=== PATIENT | male | born 1940 | race Caucasian/White ===

== ENCOUNTER 2016-09-07 02:07 | Emergency (ER) | payer MEDICARE, BC ==
[2016-09-07] MEDS ORDERED: Lidocaine 2% with EPINEPHrine 1:100,000 20 ML MDV ONE (02:26)
[2016-09-07] MEDS ORDERED: Lidocaine 2% with EPINEPHrine 1:100,000 20 ML MDV INJECT ONE (02:40)
[2016-09-07 02:55] VITALS: BP 154/87
--- NOTE | 2016-09-07 02:59 | EDM.PDOC ---
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 Denies: Transfusion Reaction - Past Surgical History HEENT Surgical History: Reports: Cataract Surgery, Tonsillectomy, Other (See Below) Other HEENT Surgeries/Procedures: cornea reconstruction GI Surgical History: Reports: Colonoscopy Social & Family History - Family History Family Medical History: Noncontributory - Tobacco Use Smoking Status *Q: Former Smoker Used Tobacco, but Quit: Yes Month Tobacco Last Used: 40yrs - Caffeine Use Caffeine Use: Reports: Coffee - Alcohol Use Alcohol Use History: No - Recreational Drug Use Recreational Drug Use: No - Living Situation & Occupation Living situation: Reports: , with Spouse Occupation: Retired ED ROS ENT - Review of Systems Review Of Systems: See Below Constitutional: Reports: No Symptoms HEENT: Reports: Nosebleed Respiratory: Reports: No Symptoms Cardiovascular: Reports: No Symptoms Endocrine: Reports: No Symptoms GI/Abdominal: Reports: No Symptoms : Reports: No Symptoms Musculoskeletal: Reports: No Symptoms Skin: Reports: No Symptoms Neurological: Reports: No Symptoms Psychiatric: Reports: No Symptoms Hematologic/Lymphatic: Reports: No Symptoms Immunologic: Reports: No Symptoms ED EXAM, ENT - Physical Exam Exam: See Below Exam Limited By: No Limitations General Appearance: Alert, WD/WN, No Apparent Distress Eye Exam: Bilateral Eye: EOMI, Normal Fundi, Normal Inspection Ears: Normal External Exam, Normal Canal, Hearing Grossly Normal Nose: Normal Inspection, Normal Mucousa, Active Bleeding (Right Nares unable to ascertain source-). No: Nasal Deformity, Nasal Swelling, Nasal Tenderness Mouth/Throat: Normal Inspection, Normal Gums, Normal Lips (Multiple missing teeth), Normal Oropharynx Head: Atraumatic, Normocephalic Neck: Normal Inspection, Supple, Non-Tender, Full Range of Motion Respiratory/Chest: No Respiratory Distress, Lungs Clear Cardiovascular: Normal Peripheral Pulses, Regular Rate, Rhythm, No Edema, No Gallop, No JVD GI/Abdominal: Non-Tender (Male) Exam: Deferred Rectal (Males) Exam: Deferred Extremities: Normal Inspection, Normal Range of Motion, Non-Tender, No Pedal Edema, Normal Capillary Refill Neurological: Alert, Oriented, CN II-XII Intact, Normal Cognition, Normal Gait, Normal Reflexes, No Motor/Sensory Deficits Psychiatric: Normal Affect, Normal Mood Skin: Warm, Dry, Intact, Normal Color, No Rash Lymphatic: No Adenopathy ED ENT PROCEDURES - Laceration/Wound Repair Right Nare Saline irrigation (cc's): 5 Exploration/Debridement/Repair: other (Packing with 2x2 soaked in 2% lidocaine with epinephrine- waiting 15 minutes with control of bleeding- this packing removed and replaced with packing saturated with water soluable lubricant) Sterile dressing applied: provider Complications: none - Epistaxis Procedure Indication: epistaxis, uncontrolled Recent anticoagulants/antiplatlets: No Uncontrolled HTN: No Recent septal/nasal surgery: No Site of bleeding: right nare, posterior Clearing of clots: patient blew nose Topical Meds: other (2% Lidocaine with epinephrine) Ice pack to area: Yes Anterior Packing: petrolatum guaze strip, nasal tampon Local anesthesia - Lidocaine (Xylocaine): 2% with epi Local anesthetic volume: 1cc Complications: No Course - Vital Signs Last Recorded V/S: Last Vital Signs Temp 37.9 C 09/07/16 02:14 Pulse 105 H 09/07/16 02:14 Resp 20 09/07/16 02:14 BP 165/105 H 09/07/16 02:14 Pulse Ox 95 09/07/16 02:14 - Orders/Labs/Meds Meds: Medications Discontinued Medications Generic Name Dose Route Start Last Admin Trade Name Rip PRN Reason Stop Dose Admin Lidocaine/Epinephrine Confirm 09/07/16 02:26 09/07/16 02:47 Xylocaine 2% With Epinephrine 1:100,000 Administered 09/07/16 02:27 Not Given Dose 20 ml .ROUTE .STK-MED ONE Lidocaine/Epinephrine 20 ml 09/07/16 02:40 09/07/16 02:47 Xylocaine 2% With Epinephrine 1:100,000 INJECT 09/07/16 02:41 20 ml ONETIME ONE Administration Departure - Departure Time of Disposition: 03:08 Disposition: Home, Self-Care 01 Condition: good Clinical Impression: Epistaxis - Discharge Information Forms: ED Department Discharge Additional Instructions: No Aspirin Rest at home Removal of packing in am at 0900. Ice pack Avoid removing or irritating packing at this time. Fluids as tolerated. F/U with Dr. Billy in am as necessary. MLP Sign Off - Signature Requirements MLP Sign Off: No - Problem List & Annotations (1) Epistaxis not due to trauma SNOMED Code(s): 54082362 Code(s): R04.0 - EPISTAXIS Status: Acute Current Visit: Yes - Problem List Review Problem List Initiated/Reviewed/Updated: No - Assessment/Plan Assessment:: Right recurrent epistaxis- Observation Nasal Packing Plan: No Aspirin Rest at home Removal of packing in am at 0900. Ice pack Avoid removing or irritating packing at this time. Fluids as tolerated. F/U with Dr. Billy in am as necessary.
== END 2016-09-07 03:20 | disposition home or self-care (01) ==
LOC: CC.ED 02:10
DX: R04.0 Epistaxis (principal); Z79.82 Long term (current) use of aspirin; Z79.899 Other long term (current) drug therapy; Z87.891 Personal history of nicotine dependence; Z98.49 Cataract extraction status, unspecified eye; Z98.890 Other specified postprocedural states
CPT/HCPCS: 30901; 30903; 99283

== ENCOUNTER 2017-09-07 15:33 | Observation (INO) | payer MEDICARE, BC ==
[~2017-09-07 15:33] MED LIST: Lactated Ringers 0 ML ONE
[2017-09-07] MEDS ORDERED: Lactated Ringers 1,000 ML IV SCH (15:45)
[2017-09-07 16:08] LABS: CHLORIDE,CL 106 mEq/L (98-106); SODIUM,NA 142 mEq/L (136-145)
[2017-09-07] MEDS ORDERED: Acetaminophen 325 MG Tab PO PRN (17:42)
[2017-09-07] MEDS ORDERED: Enoxaparin 30 MG/0.3 ML Syringe SUBCUT SCH (17:42)
[2017-09-07] MEDS: Lactated Ringers 1,000 ML IV SCH (18:09)
--- NOTE | 2017-09-07 22:31 | EDM.PDOC ---
ED HPI GENERAL MEDICAL PROBLEM - General Chief Complaint: General Stated Complaint: sweaty, lightheaded, dizzy Time Seen by Provider: 09/07/17 15:35 Source of Information: Reports: Patient, Family ( and son) History Limitations: Reports: No Limitations - History of Present Illness INITIAL COMMENTS - FREE TEXT/NARRATIVE: Jaleel is a 77 yo who is brought into the ER via [facility] from [facility]. 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 He started to feel weak, dizzy and lightheaded. He ended up having a syncopal episode. He states he does not remember much of event. He was walking to his ranger and when he woke there was a lot of people around him. His son called 911 when he saw him slumped over in ranger. He admits it was really hot out with no wind and hadn't drank much water today. He denies any chest pain prior to the syncopal episode. States he did have some chest discomfort a few days ago but went away on it's own and hasn't had any since. EMS state upon arrival Jaleel was diaphoretic. Upon getting him into the ambulance they gave him 4 baby aspirin en route and 1 sublingual nitro. IV was started with normal saline drip. They state vital signs were stable en route. Upon arrival to the emergency room, Jaleel denies any discomfort. States he isn 't sure if the heat got to him or not. Onset: Today, Sudden Duration: Resolved Prior to Arrival Location: Reports: Generalized Associated Symptoms: Reports: Diaphoresis, Nausea/Vomiting (nausea, no vomiting) , Syncope, Weakness. 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, IV/IO, Nitroglycerin, Oxygen, See EMS Report - Related Data Allergies Allergy/AdvReac Type Severity Reaction Status Date / Time No Known Allergies Allergy Verified 09/07/17 17:07 Home Meds: Home Meds Aspirin [Cristin Chewable Aspirin] 81 mg PO DAILY 09/07/16 [History] Multivits,Ca,Min/Iron/FA/Lycop [Centrum Men's Tablet] 1 tab PO DAILY 09/07/16 [ History] Past Medical History HEENT History: Reports: Cataract, Epistaxis Respiratory History: Reports: None Gastrointestinal History: Reports: PUD Hematologic History: Reports: Blood Transfusion(s) - Past Surgical History HEENT Surgical History: Reports: Cataract Surgery, Tonsillectomy, Other (See Below) Other HEENT Surgeries/Procedures: cornea reconstruction GI Surgical History: Reports: EGD Other Musculoskeletal Surgeries/Procedures:: pt reports history of 18 steroid shots in L knee and was sent to neurologist for this Social & Family History - Family History Family Medical History: Noncontributory - Tobacco Use Smoking Status *Q: Never Smoker Second Hand Smoke Exposure: Yes - Caffeine Use Caffeine Use: Reports: Coffee - Recreational Drug Use Recreational Drug Use: No - Living Situation & Occupation Living situation: Reports: , with Spouse Occupation: Retired ED ROS GENERAL - Review of Systems Review Of Systems: See Below Constitutional: Reports: Weakness, Diaphoresis. Denies: Fever, Chills HEENT: Reports: No Symptoms Respiratory: Reports: No Symptoms Cardiovascular: Reports: Lightheadedness, Syncope. Denies: Chest Pain, Blood Pressure Problem, Palpitations GI/Abdominal: Reports: Nausea. Denies: Abdominal Pain, Bloody Stool, Constipation, Diarrhea, Hematochezia, Melena, Vomiting : Reports: No Symptoms Musculoskeletal: Reports: No Symptoms Skin: Reports: Diaphoresis Neurological: Reports: Syncope. Denies: Confusion, Headache, Numbness, Pre- Existing Deficit, Tingling, Trouble Speaking, Change in Speech Psychiatric: Reports: No Symptoms ED EXAM, GENERAL - Physical Exam Exam: See Below Exam Limited By: No Limitations General Appearance: Alert, No Apparent Distress Eye Exam: Bilateral Eye: EOMI, PERRL Ears: Normal External Exam, Normal Canal, Hearing Grossly Normal, Normal TMs Nose: Normal Inspection, Normal Mucosa, No Blood Throat/Mouth: Normal Inspection, Normal Lips, Normal Gums, Normal Oropharynx, Normal Voice, No Airway Compromise Head: Atraumatic, Normocephalic Neck: Normal Inspection, Supple Respiratory/Chest: No Respiratory Distress, Lungs Clear, Normal Breath Sounds, No Accessory Muscle Use Cardiovascular: Regular Rate, Rhythm, No Edema, Systolic Murmur GI/Abdominal: Normal Bowel Sounds, Soft, No Organomegaly, No Distention, No Abnormal Bruit, No Mass Extremities: Normal Inspection, No Pedal Edema Neurological: Alert, Oriented, CN II-XII Intact, Normal Cognition, No Motor/ Sensory Deficits Psychiatric: Normal Affect, Normal Mood Skin Exam: Warm, Normal Color, Diaphoretic EKG INTERPRETATION EKG Date: 09/07/17 Rhythm: NSR Comparison: NA - No Prior EKG Course - Vital Signs Last Recorded V/S: Last Vital Signs Temp 97.2 F 09/07/17 19:55 Pulse 86 09/07/17 19:55 Resp 18 09/07/17 19:55 BP 141/76 H 09/07/17 19:55 Pulse Ox 98 09/07/17 19:55 - Orders/Labs/Meds Orders: Active Orders 24 hr Category Date Time Status Chest 2V [CR] Stat Exams 09/07/17 15:27 Taken Medication Orders Acetaminophen (Tylenol) 650 mg PO Q4H PRN PRN Reason: Pain (Mild 1-3)/fever Aspirin (Aspirin) 81 mg PO DAILY [facility] Enoxaparin Sodium (Lovenox) 30 mg SUBCUT Q24H [facility] Last Admin: 09/07/17 18:08 Dose: 30 mg Lactated Ringer's (Ringers, Lactated) 1,000 mls @ 100 mls/hr IV ASDIRECTED [facility] Last Admin: 09/07/17 18:09 Dose: 100 mls/hr Labs: Laboratory Tests 09/07/17 09/07/17 09/07/17 Range/Units 15:45 15:45 15:45 WBC 11.5 H (5.0-10.0) 10^3/uL RBC 4.61 (4.50-6.00) 10^6/uL Hgb 13.5 L (14.0-18.0) g/dL Hct 41.8 (40.0-54.0) % MCV 90.7 (82.0-94.0) fL MCH 29.3 (27.0-32.0) pg MCHC 32.3 L (33.0-38.0) g/dL RDW Coeff of Lupe 13.1 (11.0-15.0) % Plt Count 192 (150-400) 10^3/uL Neut % (Auto) 75.7 (35-85) % Lymph % (Auto) 14.9 (10-55) % [place] % (Auto) 7.4 (0-16) % Eos % (Auto) 1.7 (0-5) % Baso % (Auto) 0.3 (0-3) % Neut # (Auto) 8.71 H (1.80-7.00) 10^3/uL Lymph # (Auto) 1.72 (1.00-4.80) 10^3/uL Linn # (Auto) 0.85 H (0.00-0.80) 10^3/uL Eos # (Auto) 0.20 (0.00-0.45) 10^3/uL Baso # (Auto) 0.03 10^3/uL PT 10.6 (9.7-12.3) SEC INR 1.02 (0.92-1.18) Sodium 142 (136-145) mEq/L Potassium 3.8 (3.5-5.0) mEq/L Chloride 106 (98-106) mEq/L Carbon Dioxide 26 (21-32) mmol/L BUN 28 H (7-18) mg/dL Creatinine 1.7 H (0.7-1.3) mg/dL Est Cr Clr Drug Dosing 35.21 mL/min Estimated GFR (MDRD) 39 L (>=60) mL/min Glucose 167 H (75-99) mg/dL Calcium 9.2 (8.4-10.1) mg/dL Lactate Dehydrogenase 219 H (100-190) U/L Creatine Kinase 241 H (35-232) U/L Troponin I < 0.017 (0.00-0.06) ng/mL Meds: Medications Generic Name Dose Route Start Last Admin Trade Name Freq PRN Reason Stop Dose Admin Acetaminophen 650 mg 09/07/17 17:42 Tylenol PO Q4H PRN Pain (Mild 1-3)/fever Aspirin 81 mg 09/08/17 08:00 Aspirin PO DAILY [facility] Enoxaparin Sodium 30 mg 09/07/17 17:42 09/07/17 18:08 Lovenox SUBCUT 30 mg Q24H [facility] Administration Lactated Ringer's 1,000 mls @ 100 mls/hr 09/07/17 17:42 09/07/17 18:09 Ringers, Lactated IV 100 mls/hr ASDIRECTED [facility] Administration Discontinued Medications Generic Name Dose Route Start Last Admin Trade Name Freq PRN Reason Stop Dose Admin Lactated Ringer's 1,000 mls @ 25 mls/hr 09/07/17 15:45 Ringers, Lactated IV ASDIRECTED [facility] Lactated Ringer's Confirm 09/07/17 15:25 09/07/17 16:09 Ringers, Lactated Administered 09/07/17 15:26 Not Given Dose 1,000 mls @ as directed .ROUTE .STK-MED ONE Departure - Departure Time of Disposition: 17:00 Disposition: Refer to Observation Clinical Impression: Ruled out for myocardial infarction Episode of syncope Qualifiers: Syncope type: unspecified Qualified Code(s): R55 - Syncope and collapse - Discharge Information - Problem List & Annotations (1) Episode of syncope SNOMED Code(s): 068999916 Code(s): R55 - SYNCOPE AND COLLAPSE Status: Acute Current Visit: Yes Qualifiers: Syncope type: unspecified Qualified Code(s): R55 - Syncope and collapse (2) Ruled out for myocardial infarction SNOMED Code(s): 982364533 Code(s): Z03.89 - ENCNTR FOR OBS FOR OTH SUSPECTED DISEASES AND COND RULED OUT Status: Acute Current Visit: Yes - Problem List Review Problem List Initiated/Reviewed/Updated: Yes - My Orders Last 24 Hours: My Active Orders 09/07/17 15:27 Chest 2V [CR] Stat - Assessment/Plan Admission H&P: Please use this note as an admission H&P Last 24 Hours: My Active Orders 09/07/17 15:27 Chest 2V [CR] Stat Plan: Consulted with Dr. Billy in regards to Jaleel condition. Will admit to his services under observation. Dr. Billy was in agreement. Will get repeat cardiac enzymes, urinalysis and echocardiogram. On-call provider notified of labs this evening. Jaleel has been asymptomatic during his time in the ER. Discussed differential diagnosis with Jaleel and his family. They were in agreement for observation tonight.
[2017-09-08] MEDS: Lactated Ringers 1,000 ML IV SCH (04:03)
[2017-09-08] MEDS ORDERED: Aspirin 81 MG Tab.Chew PO SCH (08:00)
--- NOTE | 2017-09-08 09:43 | PCM.DCSUM1 ---
Discharge Summary - Hospital Course HPI Initial Comments: Jaleel is a 77 year old male who was admitted to the hospital from the ED. 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 He reports he started to feel ill so he went to sit in his [place]. He reports the next thing he knew there were "tons of people" around him. CXR negative for any acute processes. Serial troponins negative. EKG revealed no ST elevation. Patient had echocardiogram prior to discharge. Results unavailable at time of discharge. UA was positive. Patient will be discharged home on 500 mg Cipro BID x 5 days. He is scheduled to follow up with Dr. Billy next week 09/14 for hospital recheck. At time of discharge patient reports he is feeling well. He has no complaints. He thinks he just got over heated. - Discharge Data Discharge Date: 09/08/17 Discharge Disposition: Home, Self-Care 01 Condition: Good - Discharge Diagnosis/Problem(s) (1) Episode of syncope SNOMED Code(s): 227291056 ICD Code: R55 - SYNCOPE AND COLLAPSE Status: Acute Qualifiers: Syncope type: unspecified Qualified Code(s): R55 - Syncope and collapse (2) Ruled out for myocardial infarction SNOMED Code(s): 079304256 ICD Code: Z03.89 - ENCNTR FOR OBS FOR OTH SUSPECTED DISEASES AND COND RULED OUT Status: Acute - Patient Instructions Diet: Heart Healthy Diet Activity: As Tolerated Notify Provider of: Fever, Increased Pain, Swelling and Redness, Drainage, Nausea and/or Vomiting - Discharge Plan Prescriptions/Med Rec: Ciprofloxacin HCl [Cipro] 500 mg PO BID 5 Days #10 tablet Home Medications: Home Meds Aspirin [Cristin Chewable Aspirin] 81 mg PO DAILY 09/07/16 [History] Multivits,Ca,Min/Iron/FA/Lycop [Centrum Men's Tablet] 1 tab PO DAILY 09/07/16 [ History] Ciprofloxacin HCl [Cipro] 500 mg PO BID 5 Days #10 tablet 09/08/17 [Rx] Patient Handouts: Syncope, [id number] Forms: ED Department Discharge Referrals: Segundo Billy MD [Primary Care Provider] - - Discharge Summary/Plan Comment DC Time >30 min.: No - General Info Date of Service: 09/08/17 Admission Dx/Problem (Free Text: R/O IN Syncopal episode- heat induced Subjective Update: Patient reports he is feeling much better. He reports he feels back to normal this morning. He does report that his urine was "bad" yesterday, but is much more clear today. He denies any dysuria, but does reports some urgency and frequency. Does report that the frequency has been bothering him for some time now. He denies any chest pain, shortness of breath, dizziness, confusion. Functional Status: Reports: Pain Controlled, Tolerating Diet, Ambulating, Urinating. Denies: New Symptoms - Review of Systems General: Reports: No Symptoms. Denies: Fever, Weakness, Fatigue, Chills HEENT: Reports: No Symptoms Pulmonary: Reports: No Symptoms. Denies: Shortness of Breath, Pleuritic Chest Pain, Cough, Sputum, Wheezing Cardiovascular: Reports: No Symptoms. Denies: Chest Pain, Palpitations, Dyspnea on Exertion, Orthopnea, Edema, Lightheadedness Gastrointestinal: Reports: No Symptoms. Denies: Abdominal Pain, Diarrhea, Nausea, Vomiting Genitourinary: Reports: Frequency, Urgency. Denies: Dysuria, Burning, Incontinence Musculoskeletal: Reports: No Symptoms Skin: Reports: No Symptoms. Denies: Diaphoresis Neurological: Reports: No Symptoms. Denies: Confusion, Dizziness, Headache, Numbness, Syncope, Tingling, Weakness Psychiatric: Reports: No Symptoms - Patient Data Vitals - Most Recent: Last Vital Signs Temp 98.7 F 09/08/17 07:21 Pulse 89 09/08/17 07:21 Resp 19 09/08/17 07:21 BP 145/71 H 09/08/17 07:21 Pulse Ox 97 09/08/17 07:21 Weight - Most Recent: 194 lb I&O - Last 24 hours: Intake & Output 09/07/17 09/08/17 09/08/17 22:59 06:59 14:59 Intake Total 990 Balance 990 Lab Results - Last 24 hrs: Laboratory Results - last 24 hr 09/07/17 09/07/17 09/07/17 Range/Units 15:45 15:45 15:45 WBC 11.5 H (5.0-10.0) 10^3/uL RBC 4.61 (4.50-6.00) 10^6/uL Hgb 13.5 L (14.0-18.0) g/dL Hct 41.8 (40.0-54.0) % MCV 90.7 (82.0-94.0) fL MCH 29.3 (27.0-32.0) pg MCHC 32.3 L (33.0-38.0) g/dL RDW Coeff of Lupe 13.1 (11.0-15.0) % Plt Count 192 (150-400) 10^3/uL Neut % (Auto) 75.7 (35-85) % Lymph % (Auto) 14.9 (10-55) % [place] % (Auto) 7.4 (0-16) % Eos % (Auto) 1.7 (0-5) % Baso % (Auto) 0.3 (0-3) % Neut # (Auto) 8.71 H (1.80-7.00) 10^3/uL Lymph # (Auto) 1.72 (1.00-4.80) 10^3/uL [place] # (Auto) 0.85 H (0.00-0.80) 10^3/uL Eos # (Auto) 0.20 (0.00-0.45) 10^3/uL Baso # (Auto) 0.03 10^3/uL PT 10.6 (9.7-12.3) SEC INR 1.02 (0.92-1.18) Sodium 142 (136-145) mEq/L Potassium 3.8 (3.5-5.0) mEq/L Chloride 106 (98-106) mEq/L Carbon Dioxide 26 (21-32) mmol/L BUN 28 H (7-18) mg/dL Creatinine 1.7 H (0.7-1.3) mg/dL Est Cr Clr Drug Dosing 35.21 mL/min Estimated GFR (MDRD) 39 L (>=60) mL/min Glucose 167 H (75-99) mg/dL Calcium 9.2 (8.4-10.1) mg/dL Lactate Dehydrogenase 219 H (100-190) U/L Creatine Kinase 241 H (35-232) U/L Troponin I < 0.017 (0.00-0.06) ng/mL Urine Color (YELLOW) Urine Appearance (CLEAR) Urine pH (4.5-8.0) Ur Specific Ferris (1.003-1.020) Urine Protein (NEGATIVE) mg/dL Urine Glucose (UA) (NEGATIVE) mg/dL Urine Ketones (NEGATIVE) mg/dL Urine Occult Blood (NEGATIVE) Urine Nitrite (NEGATIVE) Urine Bilirubin (NEGATIVE) Urine Urobilinogen (0.2-1.0) EU/dL Ur Leukocyte Esterase (NEGATIVE) Urine RBC (0-5) /HPF Urine WBC (0-5) /HPF Ur Epithelial Cells (NOT SEEN) /HPF Calcium Oxalate Crystal (NOT SEEN) /HPF Urine Bacteria (NOT SEEN) /HPF Hyaline Casts (NOT SEEN) /LPF Urine Mucus (NOT SEEN) /HPF Urine Sperm (NOT SEEN) /HPF 09/07/17 09/07/17 09/08/17 Range/Units 17:42 20:59 07:05 WBC (5.0-10.0) 10^3/uL RBC (4.50-6.00) 10^6/uL Hgb (14.0-18.0) g/dL Hct (40.0-54.0) % MCV (82.0-94.0) fL MCH (27.0-32.0) pg MCHC (33.0-38.0) g/dL RDW Coeff of Lupe (11.0-15.0) % Plt Count (150-400) 10^3/uL Neut % (Auto) (35-85) % Lymph % (Auto) (10-55) % [place] % (Auto) (0-16) % Eos % (Auto) (0-5) % Baso % (Auto) (0-3) % Neut # (Auto) (1.80-7.00) 10^3/uL Lymph # (Auto) (1.00-4.80) 10^3/uL [place] # (Auto) (0.00-0.80) 10^3/uL Eos # (Auto) (0.00-0.45) 10^3/uL Baso # (Auto) 10^3/uL PT (9.7-12.3) SEC INR (0.92-1.18) Sodium 141 (136-145) mEq/L Potassium 3.9 (3.5-5.0) mEq/L Chloride 106 (98-106) mEq/L Carbon Dioxide 26 (21-32) mmol/L BUN 19 H (7-18) mg/dL Creatinine 1.3 (0.7-1.3) mg/dL Est Cr Clr Drug Dosing 46.04 mL/min Estimated GFR (MDRD) 54 L (>=60) mL/min Glucose 105 H D (75-99) mg/dL Calcium 8.8 (8.4-10.1) mg/dL Lactate Dehydrogenase (100-190) U/L Creatine Kinase 196 168 (35-232) U/L Troponin I 0.071 H 0.022 (0.00-0.06) ng/mL Urine Color Yellow (YELLOW) Urine Appearance Clear (CLEAR) Urine pH 5.5 (4.5-8.0) Ur Specific Ferr[place] 1.025 H (1.003-1.020) Urine Protein 30 H (NEGATIVE) mg/dL Urine Glucose (UA) Negative (NEGATIVE) mg/dL Urine Ketones 15 H (NEGATIVE) mg/dL Urine Occult Blood Negative (NEGATIVE) Urine Nitrite Negative (NEGATIVE) Urine Bilirubin Small H (NEGATIVE) Urine Urobilinogen 0.2 (0.2-1.0) EU/dL Ur Leukocyte Esterase Small H (NEGATIVE) Urine RBC Not seen (0-5) /HPF Urine WBC 30-40 H (0-5) /HPF Ur Epithelial Cells Few H (NOT SEEN) /HPF Calcium Oxalate Crystal Many H (NOT SEEN) /HPF Urine Bacteria Few H (NOT SEEN) /HPF Hyaline Casts Few H (NOT SEEN) /LPF Urine Mucus Moderate H (NOT SEEN) /HPF Urine Sperm Few H (NOT SEEN) /HPF Med Orders - Current: Current Medications Acetaminophen (Tylenol) 650 mg PO Q4H PRN PRN Reason: Pain (Mild 1-3)/fever Aspirin (Aspirin) 81 mg PO DAILY [facility] Last Admin: 09/08/17 07:43 Dose: 81 mg Enoxaparin Sodium (Lovenox) 30 mg SUBCUT Q24H [facility] Last Admin: 09/07/17 18:08 Dose: 30 mg Lactated Ringer's (Ringers, Lactated) 1,000 mls @ 100 mls/hr IV ASDIRECTED [facility] Last Admin: 09/08/17 04:03 Dose: 100 mls/hr Discontinued Medications Lactated Ringer's (Ringers, Lactated) 1,000 mls @ 25 mls/hr IV ASDIRECTED [facility] Lactated Ringer's (Ringers, Lactated) Confirm Administered Dose 1,000 mls @ as directed .ROUTE .STK-MED ONE Stop: 09/07/17 15:26 Last Admin: 09/07/17 16:09 Dose: Not Given - Exam General: Reports: Alert, Oriented, No Acute Distress HEENT: Reports: Pupils Equal, Pupils Reactive, EOMI, Mucous Membr. Moist/Paulina Neck: Reports: Supple Lungs: Reports: Clear to Auscultation, Normal Respiratory Effort Cardiovascular: Reports: Regular Rate, Regular Rhythm, Murmurs (grade 3 systolic ) GI/Abdominal Exam: Normal Bowel Sounds, Soft, Non-Tender, No Organomegaly, No Distention, No Abnormal Bruit, No Mass, Pelvis Stable Back Exam: Reports: Normal Inspection, Full Range of Motion. Denies: CVA Tenderness (L), CVA Tenderness (R) Extremities: Normal Inspection, Normal Range of Motion, Non-Tender, No Pedal Edema, Normal Capillary Refill Skin: Reports: Warm, Dry, Intact Neurological: Reports: No New Focal Deficit Psy/Mental Status: Reports: Alert, Normal Affect, Normal Mood
[2017-09-08 11:40] VITALS: BP 151/76
== END 2017-09-08 14:10 | disposition home or self-care (01) ==
LOC: CC.ED 15:33 → CC.MS 16:49 → UNDOADMOB 16:49 → CC.MS 17:21
PROVIDERS: ADMIT Physician Assistant Medical; ATTEND Family Medicine
DX: R55 Syncope and collapse (principal); Z79.82 Long term (current) use of aspirin; Z79.899 Other long term (current) drug therapy; Z90.89 Acquired absence of other organs
CPT/HCPCS: 36415; 71046; 80048; 81001; 82550; 83615; 84484; 85025; 85610; 93005; 93306; 96360; 96361; 96372; 99285; A9270-GY; G0378; J1650; J7120

== ENCOUNTER 2018-01-03 20:58 | Observation (INO) | payer MEDICARE, BC ==
[2018-01-03] MEDS ORDERED: Ondansetron 4 MG/2 ML SDV ONE (21:25)
[2018-01-03 21:49] LABS: CHLORIDE,CL 102 mEq/L (98-106); SODIUM,NA 133 mEq/L (136-145)
[2018-01-03] MEDS ORDERED: Ondansetron 4 MG/2 ML SDV IVPUSH STA (21:52)
[2018-01-03] MEDS ORDERED: Sodium Chloride 0.9% 10 ML Syringe FLUSH PRN (22:00)
[2018-01-03] MEDS ORDERED: Enoxaparin 30 MG/0.3 ML Syringe SUBCUT SCH (22:00)
[2018-01-03] MEDS ORDERED: Acetaminophen 325 MG Tab PO PRN (22:00)
--- NOTE | 2018-01-03 23:06 | EDM.PDOC ---
ED HPI GENERAL MEDICAL PROBLEM - General Chief Complaint: Syncope Stated Complaint: syncope, passed out Time Seen by Provider: 01/03/18 21:15 Source of Information: Reports: Patient, Family History Limitations: Reports: No Limitations - History of Present Illness INITIAL COMMENTS - FREE TEXT/NARRATIVE: Jaleel is a 77 yo male who is brought into the ER via [employer]. His spouse states he had came in from taking the garbage out and had sit down in a chair. She states she heard him take a deep breath or sigh and when she looked back at him he was unresponsive. She admits she immediately dialed 911 and while she was on the phone he appeared to be coming to. He states he remembers coming to and felt nauseated. Denies any emesis. States he was really sweaty but didn't have any chest pain or shortness of breath. He doesn't have any complaints presently. Had similar symptom this summer and ended up having an echocardiogram which showed severe aortic stenosis. He states last week he had all his teeth pulled out so he can have his aortic valved replaced and undergo triple bypass. He has an appointment with the tripe washer on this week. He states he is feeling well presently. Onset: Today Duration: Resolved Prior to Arrival Location: Reports: Generalized - Related Data Allergies Allergy/AdvReac Type Severity Reaction Status Date / Time No Known Allergies Allergy Verified 01/03/18 22:35 Home Meds: Home Meds Aspirin [Cristin Chewable Aspirin] 81 mg PO DAILY 09/07/16 [History] Multivits,Ca,Min/Iron/FA/Lycop [Centrum Men's Tablet] 1 tab PO DAILY 09/07/16 [ History] Ciprofloxacin HCl [Cipro] 500 mg PO BID 5 Days #10 tablet 09/08/17 [Rx] Carvedilol 12.5 mg PO BID 01/03/18 [History] atorvaSTATin [Lipitor] 20 mg PO BEDTIME 01/03/18 [History] Past Medical History HEENT History: Reports: Cataract, Epistaxis Respiratory History: Reports: None Gastrointestinal History: Reports: PUD Hematologic History: Reports: Blood Transfusion(s) - Past Surgical History HEENT Surgical History: Reports: Cataract Surgery, Tonsillectomy, Other (See Below) Other HEENT Surgeries/Procedures: cornea reconstruction GI Surgical History: Reports: EGD Other Musculoskeletal Surgeries/Procedures:: pt reports history of 18 steroid shots in L knee and was sent to neurologist for this Social & Family History - Family History Family Medical History: Noncontributory - Tobacco Use Smoking Status *Q: Never Smoker - Caffeine Use Caffeine Use: Reports: None - Recreational Drug Use Recreational Drug Use: No - Living Situation & Occupation Living situation: Reports: , with Spouse Occupation: Retired ED ROS GENERAL - Review of Systems Review Of Systems: See Below Constitutional: Reports: Diaphoresis. Denies: Fever, Chills, Weakness HEENT: Reports: No Symptoms Respiratory: Reports: No Symptoms. Denies: Shortness of Breath, Cough Cardiovascular: Reports: Syncope. Denies: Chest Pain, Blood Pressure Problem, Dyspnea on Exertion, Edema, Palpitations Endocrine: Reports: No Symptoms GI/Abdominal: Reports: No Symptoms : Reports: No Symptoms Musculoskeletal: Reports: No Symptoms Skin: Reports: No Symptoms Neurological: Reports: Syncope. Denies: Dizziness, Headache, Numbness, Seizure , Tingling, Trouble Speaking, Weakness Psychiatric: Reports: No Symptoms ED EXAM, GENERAL - Physical Exam Exam: See Below Exam Limited By: No Limitations General Appearance: Alert, No Apparent Distress Eye Exam: Bilateral Eye: EOMI, Normal Inspection, PERRL Ears: Normal External Exam, Hearing Grossly Normal Nose: Normal Inspection, Normal Mucosa, No Blood Throat/Mouth: Normal Inspection, Other (no teeth, bruising to gum line from tooth extraction) Head: Facial Swelling (ecchymosis to face from tooth extractions) Neck: Normal Inspection, Supple, Non-Tender Respiratory/Chest: No Respiratory Distress, Lungs Clear, Normal Breath Sounds, No Accessory Muscle Use Cardiovascular: Normal Peripheral Pulses, Regular Rate, Rhythm, No Edema, Systolic Murmur GI/Abdominal: Normal Bowel Sounds, Soft, No Organomegaly, No Mass Extremities: Normal Inspection, No Pedal Edema, Normal Capillary Refill Neurological: Alert, Oriented, CN II-XII Intact, Normal Cognition, No Motor/ Sensory Deficits Psychiatric: Normal Affect, Normal Mood Skin Exam: Warm, Dry, Intact, Normal Color, No Rash EKG INTERPRETATION EKG Date: 01/03/18 Rhythm: NSR Course - Vital Signs Last Recorded V/S: Last Vital Signs Temp 95.9 F 01/03/18 22:00 Pulse 63 01/03/18 22:00 Resp 20 01/03/18 22:00 BP 133/56 L 01/03/18 22:00 Pulse Ox 97 01/03/18 22:00 - Orders/Labs/Meds Orders: Active Orders 24 hr Category Date Time Status Chest 2V [CR] Routine Exams 01/03/18 Ordered Head wo Cont [CT] Routine Exams 01/03/18 Ordered Medication Orders Acetaminophen (Tylenol) 650 mg PO Q4H PRN PRN Reason: Pain (Mild 1-3)/fever Enoxaparin Sodium (Lovenox) 30 mg SUBCUT Q24H EVER Sodium Chloride (Saline Flush) 10 ml FLUSH ASDIRECTED PRN PRN Reason: Keep Vein Open Labs: Laboratory Tests 01/03/18 01/03/18 01/03/18 Range/Units 21:31 21:31 21:31 WBC 11.6 H (5.0-10.0) 10^3/uL RBC 3.71 L (4.50-6.00) 10^6/uL Hgb 10.8 L (14.0-18.0) g/dL Hct 33.8 L (40.0-54.0) % MCV 91.1 (82.0-94.0) fL MCH 29.1 (27.0-32.0) pg MCHC 32.0 L (33.0-38.0) g/dL RDW Coeff of Lupe 12.9 (11.0-15.0) % Plt Count 202 (150-400) 10^3/uL Neut % (Auto) 55.9 (35-85) % Lymph % (Auto) 29.8 (10-55) % [place] % (Auto) 11.2 (0-16) % Eos % (Auto) 2.8 (0-5) % Baso % (Auto) 0.3 (0-3) % Neut # (Auto) 6.48 (1.80-7.00) 10^3/uL Lymph # (Auto) 3.45 (1.00-4.80) 10^3/uL [place] # (Auto) 1.30 H (0.00-0.80) 10^3/uL Eos # (Auto) 0.33 (0.00-0.45) 10^3/uL Baso # (Auto) 0.03 10^3/uL PT 10.8 (9.7-12.3) SEC INR 1.04 (0.92-1.18) APTT 24.7 (23.2-32.3) SEC Sodium 133 L (136-145) mEq/L Potassium 4.4 (3.5-5.0) mEq/L Chloride 102 (98-106) mEq/L Carbon Dioxide 29 (21-32) mmol/L BUN 16 (7-18) mg/dL Creatinine 1.5 H (0.7-1.3) mg/dL Est Cr Clr Drug Dosing TNP Estimated GFR (MDRD) 45 L (>=60) mL/min Glucose 241 H D (75-99) mg/dL Calcium 9.3 (8.4-10.1) mg/dL Lactate Dehydrogenase 181 (100-190) U/L Creatine Kinase 62 (35-232) U/L Troponin I < 0.017 (0.00-0.06) ng/mL Meds: Medications Generic Name Dose Route Start Last Admin Trade Name Freq PRN Reason Stop Dose Admin Acetaminophen 650 mg 01/03/18 22:00 Tylenol PO Q4H PRN Pain (Mild 1-3)/fever Enoxaparin Sodium 30 mg 01/03/18 22:00 Lovenox SUBCUT Q24H EVER Sodium Chloride 10 ml 01/03/18 22:00 Saline Flush FLUSH ASDIRECTED PRN Keep Vein Open Discontinued Medications Generic Name Dose Route Start Last Admin Trade Name Freq PRN Reason Stop Dose Admin Ondansetron HCl Confirm 01/03/18 21:25 Zofran Administered 01/03/18 21:26 Dose 4 mg .ROUTE .STK-MED ONE Ondansetron HCl 4 mg 01/03/18 21:52 Zofran IVPUSH 01/03/18 21:53 NOW STA Departure - Departure Time of Disposition: 21:52 Disposition: Refer to Observation Condition: Good Clinical Impression: Aortic stenosis, severe Episode of syncope Qualifiers: Syncope type: unspecified Qualified Code(s): R55 - Syncope and collapse - Discharge Information - Problem List & Annotations (1) Episode of syncope SNOMED Code(s): 054819949 Code(s): R55 - SYNCOPE AND COLLAPSE Status: Acute Current Visit: Yes Qualifiers: Syncope type: unspecified Qualified Code(s): R55 - Syncope and collapse (2) Aortic stenosis, severe SNOMED Code(s): 72006426 Code(s): I35.0 - NONRHEUMATIC AORTIC (VALVE) STENOSIS Status: Acute Current Visit: Yes - Problem List Review Problem List Initiated/Reviewed/Updated: Yes - My Orders Last 24 Hours: My Active Orders 01/03/18 Chest 2V [CR] Routine Head wo Cont [CT] Routine - Assessment/Plan Admission H&P: Please use this note as an admission H&P Last 24 Hours: My Active Orders 01/03/18 Chest 2V [CR] Routine Head wo Cont [CT] Routine Plan: Laboratory work was stable. EKG showed NSR. Chest X-ray stable, no active cardiopulmonary disease seen. CT of the brain was negative. Will admit to Dr. Billy's services under observation. Dr. Billy alerted of admission. Will closely monitor with telemetry tonight. Will repeat cardiac enzymes in am. Jaleel verbalized understanding and patient was transferred to floor in satisfactory condition.
[2018-01-04 07:46] VITALS: BP 146/87
--- NOTE | 2018-01-04 17:28 | PCM.DCSUM1 ---
Discharge Summary - Hospital Course Free Text/Narrative:: Jaleel is a 77 yo male who is brought into the ER via [place]. His spouse states he had came in from taking the garbage out, started to feel somewhat lightheaded at that time and had sit down in a chair. heard him take a deep breath or sigh and when she looked back at him he was unresponsive but was only "out" for a short time as was arousing while she was calling 911. Patient relates that had a similar episode months ago and with doctoring was found to have severe aortic stenosis. He has been seeing cardiology and had further work up. Plan is to have triple vessel bypass and aortic valve replacement. Had issues with dental caries so thus had to have all his teeth removed recently to prevent concerns with infection. Had mild nausea, no vomiting. NO chest pain or shortness of breath in ER. Diagnosis: Stroke: No Modified Elmo Scale: No Symptoms at All Modified Elmo Scale Score: 0 - Discharge Data Discharge Date: 01/04/18 Discharge Disposition: Home, Self-Care 01 Condition: Fair - Patient Summary/Data Complications: none Hospital Course: Patient has done well since admission. No further episodes of feeling lightheaded, no syncope. Cardiac telemetry stable, no EKG changes. Cardiac enzymes negative. Up ambulating in the halls without concern. Does have significant facial bruising due to dental extraction. Will discharge today. 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 Return if develop any other symptoms or concerns. - Patient Instructions Diet: Usual Diet as Tolerated Activity: As Tolerated - Discharge Plan *PRESCRIPTION DRUG MONITORING PROGRAM REVIEWED*: No *COPY OF PRESCRIPTION DRUG MONITORING REPORT IN PATIENT FABIANA: No Home Medications: Home Meds Aspirin [Cristin Chewable Aspirin] 81 mg PO DAILY 09/07/16 [History] Multivits,Ca,Min/Iron/FA/Lycop [Centrum Men's Tablet] 1 tab PO DAILY 09/07/16 [ History] Carvedilol 12.5 mg PO BID 01/03/18 [History] atorvaSTATin [Lipitor] 20 mg PO BEDTIME 01/03/18 [History] Patient Handouts: Syncope Forms: ED Department Discharge - Discharge Summary/Plan Comment DC Time >30 min.: No Discharge Summary/Plan Comment: Discharge home No current changes See dentist today Cardiology visit as planned tomorrow - General Info Date of Service: 01/04/18 Admission Dx/Problem (Free Text: Syncope Functional Status: Reports: Pain Controlled, Tolerating Diet, Ambulating - Review of Systems General: Denies: Fever, Weakness, Fatigue HEENT: Reports: Other (facial bruising/gums and cheeks sore from recent dental work) Pulmonary: Denies: Shortness of Breath, Cough Cardiovascular: Denies: Chest Pain, Edema, Lightheadedness Gastrointestinal: Denies: Abdominal Pain, Nausea, Vomiting Genitourinary: Reports: No Symptoms Musculoskeletal: Reports: No Symptoms Skin: Reports: Bruising Neurological: Reports: No Symptoms - Patient Data Vitals - Most Recent: Last Vital Signs Temp 98.2 F 01/04/18 07:45 Pulse 65 01/04/18 07:45 Resp 18 01/04/18 07:45 BP 146/87 H 01/04/18 07:45 Pulse Ox 97 01/04/18 07:45 Weight - Most Recent: 189 lb 9.6 oz Lab Results - Last 24 hrs: Laboratory Results - last 24 hr 01/03/18 01/03/18 01/03/18 Range/Units 21:31 21:31 21:31 WBC 11.6 H (5.0-10.0) 10^3/uL RBC 3.71 L (4.50-6.00) 10^6/uL Hgb 10.8 L (14.0-18.0) g/dL Hct 33.8 L (40.0-54.0) % MCV 91.1 (82.0-94.0) fL MCH 29.1 (27.0-32.0) pg MCHC 32.0 L (33.0-38.0) g/dL RDW Coeff of Lupe 12.9 (11.0-15.0) % Plt Count 202 (150-400) 10^3/uL Neut % (Auto) 55.9 (35-85) % Lymph % (Auto) 29.8 (10-55) % [place] % (Auto) 11.2 (0-16) % Eos % (Auto) 2.8 (0-5) % Baso % (Auto) 0.3 (0-3) % Neut # (Auto) 6.48 (1.80-7.00) 10^3/uL Lymph # (Auto) 3.45 (1.00-4.80) 10^3/uL [place] # (Auto) 1.30 H (0.00-0.80) 10^3/uL Eos # (Auto) 0.33 (0.00-0.45) 10^3/uL Baso # (Auto) 0.03 10^3/uL PT 10.8 (9.7-12.3) SEC INR 1.04 (0.92-1.18) APTT 24.7 (23.2-32.3) SEC Sodium 133 L (136-145) mEq/L Potassium 4.4 (3.5-5.0) mEq/L Chloride 102 (98-106) mEq/L Carbon Dioxide 29 (21-32) mmol/L BUN 16 (7-18) mg/dL Creatinine 1.5 H (0.7-1.3) mg/dL Est Cr Clr Drug Dosing TNP Estimated GFR (MDRD) 45 L (>=60) mL/min Glucose 241 H D (75-99) mg/dL Calcium 9.3 (8.4-10.1) mg/dL Lactate Dehydrogenase 181 (100-190) U/L Creatine Kinase 62 (35-232) U/L Troponin I < 0.017 (0.00-0.06) ng/mL Urine Color (YELLOW) Urine Appearance (CLEAR) Urine pH (4.5-8.0) Ur Specific [place] (1.003-1.020) Urine Protein (NEGATIVE) mg/dL Urine Glucose (UA) (NEGATIVE) mg/dL Urine Ketones (NEGATIVE) mg/dL Urine Occult Blood (NEGATIVE) Urine Nitrite (NEGATIVE) Urine Bilirubin (NEGATIVE) Urine Urobilinogen (0.2-1.0) EU/dL Ur Leukocyte Esterase (NEGATIVE) Urine RBC (0-5) /HPF Urine WBC (0-5) /HPF Ur Squamous Epith Cells (NOT SEEN) /HPF Urine Bacteria (NOT SEEN) /HPF 01/04/18 01/04/18 Range/Units 07:15 08:25 WBC (5.0-10.0) 10^3/uL RBC (4.50-6.00) 10^6/uL Hgb (14.0-18.0) g/dL Hct (40.0-54.0) % MCV (82.0-94.0) fL MCH (27.0-32.0) pg MCHC (33.0-38.0) g/dL RDW Coeff of Lupe (11.0-15.0) % Plt Count (150-400) 10^3/uL Neut % (Auto) (35-85) % Lymph % (Auto) (10-55) % [place] % (Auto) (0-16) % Eos % (Auto) (0-5) % Baso % (Auto) (0-3) % Neut # (Auto) (1.80-7.00) 10^3/uL Lymph # (Auto) (1.00-4.80) 10^3/uL [place] # (Auto) (0.00-0.80) 10^3/uL Eos # (Auto) (0.00-0.45) 10^3/uL Baso # (Auto) 10^3/uL PT (9.7-12.3) SEC INR (0.92-1.18) APTT (23.2-32.3) SEC Sodium (136-145) mEq/L Potassium (3.5-5.0) mEq/L Chloride (98-106) mEq/L Carbon Dioxide (21-32) mmol/L BUN (7-18) mg/dL Creatinine (0.7-1.3) mg/dL Est Cr Clr Drug Dosing Estimated GFR (MDRD) (>=60) mL/min Glucose (75-99) mg/dL Calcium (8.4-10.1) mg/dL Lactate Dehydrogenase (100-190) U/L Creatine Kinase 51 (35-232) U/L Troponin I < 0.017 (0.00-0.06) ng/mL Urine Color Yellow (YELLOW) Urine Appearance Clear (CLEAR) Urine pH 7.0 (4.5-8.0) Ur Specific [place] 1.015 (1.003-1.020) Urine Protein Negative (NEGATIVE) mg/dL Urine Glucose (UA) Negative (NEGATIVE) mg/dL Urine Ketones Negative (NEGATIVE) mg/dL Urine Occult Blood Negative (NEGATIVE) Urine Nitrite Negative (NEGATIVE) Urine Bilirubin Negative (NEGATIVE) Urine Urobilinogen 1.0 (0.2-1.0) EU/dL Ur Leukocyte Esterase Moderate H (NEGATIVE) Urine RBC Not seen (0-5) /HPF Urine WBC 5-10 H (0-5) /HPF Ur Squamous Epith Cells Occasional H (NOT SEEN) /HPF Urine Bacteria Occasional H (NOT SEEN) /HPF Med Orders - Current: Current Medications Discontinued Medications Acetaminophen (Tylenol) 650 mg PO Q4H PRN PRN Reason: Pain (Mild 1-3)/fever Enoxaparin Sodium (Lovenox) 30 mg SUBCUT Q24H EVER Last Admin: 01/03/18 23:25 Dose: 30 mg Ondansetron HCl (Zofran) Confirm Administered Dose 4 mg .ROUTE .STK-MED ONE Stop: 01/03/18 21:26 Last Admin: 01/03/18 21:39 Dose: 4 mg Ondansetron HCl (Zofran) 4 mg IVPUSH NOW STA Stop: 01/03/18 21:53 Last Admin: 01/03/18 23:28 Dose: Not Given Sodium Chloride (Saline Flush) 10 ml FLUSH ASDIRECTED PRN PRN Reason: Keep Vein Open - Exam General: Reports: Alert, Oriented HEENT: Reports: Mucous Membr. Moist/[place], Other (significant facial bruising noted) Neck: Reports: Supple Lungs: Reports: Clear to Auscultation, Normal Respiratory Effort Cardiovascular: Reports: Regular Rate, Regular Rhythm, Murmurs GI/Abdominal Exam: Normal Bowel Sounds, Soft, Non-Tender Skin: Reports: Warm, Dry, Ecchymosis Neurological: Reports: No New Focal Deficit
== END 2018-01-04 10:00 | disposition home or self-care (01) ==
LOC: CC.ED 20:58 → UNDOADMOB 21:50 → CC.MS 21:50
PROVIDERS: ADMIT Physician Assistant Medical; ATTEND Family Medicine
DX: R55 Syncope and collapse (principal); I35.0 Nonrheumatic aortic (valve) stenosis; Z79.82 Long term (current) use of aspirin; Z79.899 Other long term (current) drug therapy
CPT/HCPCS: 36415; 70450; 71046; 80048; 81001; 82550; 83615; 84484; 85025; 85610; 85730; 93005; 96372; 96374; 99285; G0378; J1650; J2405

== ENCOUNTER 2018-03-08 04:29 | Emergency (ER) | payer MEDICARE, BC ==
--- NOTE | 2018-03-08 05:45 | EDM.PDOC ---
ED HPI GENERAL MEDICAL PROBLEM - General Chief Complaint: ENT Problem Stated Complaint: NOSEBLEED Time Seen by Provider: 03/08/18 04:55 Source of Information: Reports: Patient History Limitations: Reports: No Limitations - History of Present Illness INITIAL COMMENTS - FREE TEXT/NARRATIVE: Jaleel is a 78 yo male who presents to the ED via [facility] with complaints of recurrent nose bleed. He has been dealing with a nose bleed off and on since the . He was seen on the by Afia and was able to get the bleeding to stop by using ice pack, Afrin and nasal clamp. He states he was again seen today by Afia for the same problem and she had Dr. Billy cauterize and pack it. He admits it dripped all afternoon and this evening it started to bleed again. He admits he could feel it in his throat. While it was actively bleeding this evening he did get lightheaded and felt as if he was going to pass out. He admits to being anxious. In January he underwent CABG X 3 and aortic valve replacement. He was started on Coumadin and had his INR checked yesterday which it was 2.20. He currently takes 2.5mg daily. His ex-, who resides with him, admits she does smoke in the house. - Related Data Allergies Allergy/AdvReac Type Severity Reaction Status Date / Time No Known Allergies Allergy Verified 03/08/18 04:39 Home Meds: Home Meds Aspirin [Cristin Chewable Aspirin] 81 mg PO DAILY 09/07/16 [History] Multivits,Ca,Min/Iron/FA/Lycop [Centrum Men's Tablet] 1 tab PO DAILY 09/07/16 [ History] Carvedilol 12.5 mg PO BID 01/03/18 [History] atorvaSTATin [Lipitor] 20 mg PO BEDTIME 01/03/18 [History] Amiodarone [Cordarone] 200 mg PO DAILY 03/08/18 [History] Furosemide 20 mg PO DAILY 03/08/18 [History] Warfarin Sodium 2.5 mg PO DAILY 03/08/18 [History] amLODIPine [Norvasc] 2.5 mg PO DAILY 03/08/18 [History] Past Medical History HEENT History: Reports: Cataract, Epistaxis Other HEENT History: Had all teeth pulled dec 2017. Cardiovascular History: Reports: Heart Murmur, Heart Valve Replacement Other Cardiovascular History: Aortic stenosis Respiratory History: Reports: None Gastrointestinal History: Reports: PUD Neurological History: Reports: None Psychiatric History: Reports: None Hematologic History: Reports: Blood Transfusion(s) - Past Surgical History HEENT Surgical History: Reports: Cataract Surgery, Tonsillectomy, Other (See Below) Other HEENT Surgeries/Procedures: cornea reconstruction Cardiovascular Surgical History: Reports: Coronary Artery Bypass Other Cardiovascular Surgeries/Procedures: TRIPLE BIPASS, AORTIC VALVE REPLACE, FIXED THE HOLE IN HEART - 02-07-2018 GI Surgical History: Reports: EGD Other Musculoskeletal Surgeries/Procedures:: pt reports history of 18 steroid shots in L knee and was sent to neurologist for this Social & Family History - Family History Family Medical History: Noncontributory - Tobacco Use Smoking Status *Q: Never Smoker - Caffeine Use Caffeine Use: Reports: Coffee - Recreational Drug Use Recreational Drug Use: No - Living Situation & Occupation Living situation: Reports: , with Spouse Occupation: Retired ED ROS ENT - Review of Systems Review Of Systems: ROS reveals no pertinent complaints other than HPI. Constitutional: Denies: Fever, Chills, Weakness, Diaphoresis HEENT: Reports: Nosebleed Respiratory: Denies: Shortness of Breath, Wheezing, Cough Cardiovascular: Denies: Chest Pain, Palpitations GI/Abdominal: Reports: No Symptoms (initially), Bloody Stool (after re- evaluation). Denies: Abdominal Pain, Nausea, Vomiting Skin: Reports: No Symptoms Neurological: Reports: No Symptoms ED EXAM, ENT - Physical Exam Exam: See Below Exam Limited By: No Limitations General Appearance: Alert, No Apparent Distress Nose: Dried Blood, Other (blood soaked nasal packing to left nare, no active bleeding noted. ). No: Active Bleeding Mouth/Throat: Normal Inspection, Normal Gums, Normal Oropharynx, Normal Teeth, Other (no bloody post-nasal drip seen. ) Head: Atraumatic, Normocephalic Respiratory/Chest: No Respiratory Distress Cardiovascular: Regular Rate, Rhythm, No Edema, Systolic Murmur Neurological: Alert, Normal Cognition, No Motor/Sensory Deficits Psychiatric: Anxious Skin: Warm, Dry, Intact, Normal Color, No Rash EKG INTERPRETATION EKG Date: 03/08/18 Rhythm: NSR Course - Vital Signs Last Recorded V/S: Last Vital Signs Temp 98.6 F 03/08/18 04:44 Pulse 83 03/08/18 04:44 Resp 18 03/08/18 04:44 BP 96/51 L 03/08/18 04:44 Pulse Ox 97 03/08/18 04:44 - Orders/Labs/Meds Orders: Active Orders 24 hr Category Date Time Status EKG Documentation Completion [RC] STAT Care 03/08/18 05:26 Active BMP [BASIC METABOLIC PANEL,BMP] [CHEM] Stat Lab 03/08/18 06:10 Received INR,PT,PROTHROMBIN TIME [COAG] Stat Lab 03/08/18 06:10 Received RED BLOOD CELLS LP [BBK] Stat Lab 03/08/18 06:10 Results TYPE AND SCREEN [BBK] Stat Lab 03/08/18 06:10 Results Phytonadione [AquaMephyton] Med 03/08/18 07:18 Once 5 mg SUBCUT ONETIME ONE Labs: Laboratory Tests 03/08/18 03/08/18 Range/Units 06:10 06:10 WBC 13.6 H (5.0-10.0) 10^3/uL RBC 2.03 L (4.50-6.00) 10^6/uL Hgb 5.7 L* (14.0-18.0) g/dL Hct 18.9 L* (40.0-54.0) % MCV 93.1 (82.0-94.0) fL MCH 28.1 (27.0-32.0) pg MCHC 30.2 L (33.0-38.0) g/dL RDW Coeff of Lupe 14.4 (11.0-15.0) % Plt Count 213 (150-400) 10^3/uL Neut % (Auto) 80.9 (35-85) % Lymph % (Auto) 11.3 (10-55) % Hanson % (Auto) 6.6 (0-16) % Eos % (Auto) 1.0 (0-5) % Baso % (Auto) 0.2 (0-3) % Neut # (Auto) 10.98 H (1.80-7.00) 10^3/uL Lymph # (Auto) 1.54 (1.00-4.80) 10^3/uL Hanson # (Auto) 0.89 H (0.00-0.80) 10^3/uL Eos # (Auto) 0.13 (0.00-0.45) 10^3/uL Baso # (Auto) 0.03 10^3/uL Blood Type O POSITIVE Gel Antibody Screen Negative Crossmatch See Detail Meds: Medications Discontinued Medications Generic Name Dose Route Start Last Admin Trade Name Rip PRN Reason Stop Dose Admin Pantoprazole Sodium 40 mg 03/08/18 06:51 03/08/18 07:12 Protonix Iv IVPUSH 03/08/18 06:52 40 mg NOW STA Administration - Re-Assessments/Exams Free Text/Narrative Re-Assessment/Exam: Lightheadedness has subsided. EKG showed NSR. Labs currently pending, will check Hgb and repeat INR. Jaleel will be in extended ER to confirm no further active bleeding. Discussed if bleeding persists will consult with ENT for further eval and treatment. Jaleel was transferred to the floor in satisfactory condition for monitoring. 03/08/18 07:19 Hgb was 5.7. INR of 2.57. Further discussion with Jaleel in regards to his Hgb. We have no recent Hgb prior from our facility. He does admit he has been having black stools as well with last bowel movement yesterday. He denies any abdominal discomfort. Does recall having a bleeding ulcer 10+ years ago. 40mg of Protonix was given. Lab to nayeli. Consulted with Dr. Day ( hospitalist at [facility]) who kindly accepted transfer. Recommended to give 1 unit of prbc's and 5mg of Vitamin K SC. Departure - Departure Time of Disposition: 07:38 Disposition: DC/Tfer to [facility] 02 Clinical Impression: Epistaxis, GI (gastrointestinal bleed), Anticoagulant-induced bleeding - Discharge Information Forms: ED Department Discharge - Problem List & Annotations (1) Epistaxis SNOMED Code(s): 576983259 Code(s): R04.0 - EPISTAXIS Status: Acute (2) GI (gastrointestinal bleed) SNOMED Code(s): 98636761 Code(s): K92.2 - GASTROINTESTINAL HEMORRHAGE, UNSPECIFIED Status: Acute Current Visit: Yes Qualifiers: GI bleed type/associated pathology: unspecified gastrointestinal hemorrhage type Qualified Code(s): K92.2 - Gastrointestinal hemorrhage, unspecified (3) Anticoagulant-induced bleeding SNOMED Code(s): 511432586 Code(s): T45.7X1A - POISN BY ANTICOAG ANTAG, VITAMIN K AND OTH COAG, ACC, INIT; D68.9 - COAGULATION DEFECT, UNSPECIFIED Status: Acute Current Visit: Yes - My Orders Last 24 Hours: My Active Orders 03/08/18 05:26 EKG Documentation Completion [RC] STAT 03/08/18 06:10 BMP [BASIC METABOLIC PANEL,BMP] [CHEM] Stat INR,PT,PROTHROMBIN TIME [COAG] Stat RED BLOOD CELLS LP [BBK] Stat TYPE AND SCREEN [BBK] Stat 03/08/18 07:18 Phytonadione [AquaMephyton] 5 mg SUBCUT ONETIME ONE - Assessment/Plan Last 24 Hours: My Active Orders 03/08/18 05:26 EKG Documentation Completion [RC] STAT 03/08/18 06:10 BMP [BASIC METABOLIC PANEL,BMP] [CHEM] Stat INR,PT,PROTHROMBIN TIME [COAG] Stat RED BLOOD CELLS LP [BBK] Stat TYPE AND SCREEN [BBK] Stat 03/08/18 07:18 Phytonadione [AquaMephyton] 5 mg SUBCUT ONETIME ONE Plan: Direct transfer via ALS to [facility] in [place]. Dr. Day (hospitalist) accepting physician. See course Risks and benefits of transfer discussed into detail with Jaleel. Risks of transfer: MVA, worsening of condition, . Benefits of transfer: specialty care and interventions not provided at this local facility. Risks of non- transfer: lack of specialized treatment/interventions, worsening of condition, . Benefits of non-transfer: staying in familiar environment and close to home. Jaleel verbalized understanding and was in agreement with transfer. Last vitals: BP 123/52, P83, T 98.3, O2 99% RA, R 20
[2018-03-08] MEDS ORDERED: Pantoprazole 40 MG Vial IVPUSH STA (06:51)
[2018-03-08] MEDS ORDERED: Sodium Chloride 0.9% 250 ML IV SCH (07:30)
[2018-03-08 07:40] VITALS: BP 123/54
== END 2018-03-08 07:57 ==
LOC: CC.ED 04:29
DX: T45.7X1A Poisoning by anticoagulant antagonists, vitamin K and other coagulants, accidental (unintentional), initial encounter (principal); D68.32 Hemorrhagic disorder due to extrinsic circulating anticoagulants; K92.2 Gastrointestinal hemorrhage, unspecified; R04.0 Epistaxis; Z79.82 Long term (current) use of aspirin; Z79.01 Long term (current) use of anticoagulants; Z79.899 Other long term (current) drug therapy; Z95.1 Presence of aortocoronary bypass graft
CPT/HCPCS: 36415; 36430; 80048; 85025; 85610; 86850; 86900; 86901; 86920; 86922; 93005; 96372; 96374; 99284; C9113; J3430; J7050; P9016; 93010

== ENCOUNTER 2020-04-04 11:48 | Inpatient (IN) | payer MEDICARE, BC ==
--- NOTE | 2020-04-04 12:00 | EDM.PDOC ---
ED HPI GENERAL MEDICAL PROBLEM - General Chief Complaint: Neuro Symptoms/Deficits Stated Complaint: can't walk on LE Time Seen by Provider: 04/04/20 11:56 Source of Information: Reports: Patient History Limitations: Reports: No Limitations - History of Present Illness INITIAL COMMENTS - FREE TEXT/NARRATIVE: Jaleel is an 80 year old male with PMH of ischemic heart disease, aortic valve replacement, and CAD s/p CABG, who presents to the ED with c/o left knee pain. He reports the last few days his knee has been bothering him more and today he was unsteady walking on it so his significant other called 911 as she was worried he was going to fall. Has had no redness, warmth, or swelling to his knee. Was then found to have heart rate in 160s as well as temperature of 102. He denies feeling any palpitations. Does admit he was "sweaty" earlier today. Does feel slightly dizzy at times. Was unaware that he had a fever. He denies any chest pain, shortness of breath, nausea, vomiting, diarrhea, decreased appetite, body aches. Location: Reports: Lower Extremity, Left Quality: Reports: Ache Severity: Moderate Associated Symptoms: Reports: Diaphoresis, Fever/Chills. Denies: Confusion, Chest Pain, Cough, cough w sputum, Headaches, Loss of Appetite, Malaise, Nausea/Vomiting, Rash, Seizure, Shortness of Breath, Syncope, Weakness Left Knee Pain Score (Numeric/FACES): 5 - Related Data Allergies Allergy/AdvReac Type Severity Reaction Status Date / Time No Known Allergies Allergy Verified 04/04/20 11:58 Home Meds: Home Meds Multivit-Mins/Iron/Folic/Lycop [Centrum Men's Tablet] 1 tab PO DAILY 09/07/16 [History] atorvaSTATin [Lipitor] 20 mg PO BEDTIME 01/03/18 [History] carvediloL [Carvedilol] 6.25 mg PO BID 01/03/18 [History] Acetaminophen [Tylenol Arthritis] 1,300 mg PO Q4HR PRN 03/21/18 [History] Aspirin [Aspirin EC] 325 mg PO DAILY 03/21/18 [History] Past Medical History HEENT History: Reports: Cataract, Epistaxis Other HEENT History: Had all teeth pulled dec 2017. Cardiovascular History: Reports: Heart Murmur, Heart Valve Replacement Other Cardiovascular History: Aortic stenosis Respiratory History: Reports: None Gastrointestinal History: Reports: PUD Other Musculoskeletal History: has had some problems for years with foot drop on the left Neurological History: Reports: None Psychiatric History: Reports: None Hematologic History: Reports: Blood Transfusion(s) - Past Surgical History HEENT Surgical History: Reports: Cataract Surgery, Tonsillectomy, Other (See Below) Other HEENT Surgeries/Procedures: cornea reconstruction Cardiovascular Surgical History: Reports: Coronary Artery Bypass Other Cardiovascular Surgeries/Procedures: TRIPLE BIPASS, AORTIC VALVE REPLACE, FIXED THE HOLE IN HEART - 02-07-2018 GI Surgical History: Reports: EGD Other Musculoskeletal Surgeries/Procedures:: pt reports history of 18 steroid shots in L knee and was sent to neurologist for this Social & Family History - Family History Family Medical History: No Pertinent Family History - Caffeine Use Caffeine Use: Reports: Coffee - Living Situation & Occupation Living situation: Reports: , with Spouse Occupation: Retired ED ROS GENERAL - Review of Systems Review Of Systems: See Below Constitutional: Reports: Fever, Weakness, Diaphoresis. Denies: Chills, Malaise, Fatigue, Decreased Appetite HEENT: Reports: No Symptoms Respiratory: Reports: No Symptoms. Denies: Shortness of Breath, Pleuritic Chest Pain, Cough Cardiovascular: Reports: Lightheadedness. Denies: Chest Pain, Dyspnea on Exertion, Edema, Orthopnea, Palpitations, Syncope Endocrine: Reports: No Symptoms GI/Abdominal: Reports: No Symptoms. Denies: Abdominal Pain, Constipation, Diarrhea, Decreased Appetite, Nausea, Vomiting : Reports: No Symptoms. Denies: Dysuria, Frequency, Urgency Musculoskeletal: Reports: Joint Pain (left knee). Denies: Joint Swelling Skin: Reports: No Symptoms Neurological: Reports: Dizziness, Difficulty Walking, Weakness. Denies: Confusion, Headache, Numbness, Tingling, Gait Disturbance Psychiatric: Reports: No Symptoms Hematologic/Lymphatic: Reports: No Symptoms Immunologic: Reports: No Symptoms ED EXAM, GENERAL - Physical Exam Exam: See Below Exam Limited By: No Limitations General Appearance: Alert, WD/WN, No Apparent Distress Eye Exam: Bilateral Eye: EOMI, PERRL Throat/Mouth: Normal Inspection, Normal Lips, Normal Teeth, Normal Gums, Normal Oropharynx, Normal Voice, No Airway Compromise Head: Atraumatic, Normocephalic Neck: Normal Inspection, Supple, Non-Tender, Full Range of Motion Respiratory/Chest: No Respiratory Distress, Lungs Clear, Normal Breath Sounds, No Accessory Muscle Use, Chest Non-Tender Cardiovascular: Normal Peripheral Pulses, No Edema, Tachycardia, Systolic Murmur (grade II RUSB), Irregularly Irregular Peripheral Pulses: 2+: Dorsalis Pedis (L), Dorsalis Pedis (R) GI/Abdominal: Normal Bowel Sounds, Soft, Non-Tender, No Organomegaly, No Distention, No Abnormal Bruit, No Mass Back Exam: Normal Inspection, Full Range of Motion, NT Extremities: Normal Inspection, Normal Range of Motion, Non-Tender, No Pedal Edema, Normal Capillary Refill. No: Joint Swelling, Limited Range of Motion, Increased Warmth, Redness Neurological: Alert, Oriented, CN II-XII Intact, Normal Cognition, Normal Reflexes, No Motor/Sensory Deficits Psychiatric: Normal Affect, Normal Mood Skin Exam: Warm, Dry, Intact, Normal Color, No Rash Lymphatic: No Adenopathy Course - Vital Signs Last Recorded V/S: Last Vital Signs Temp 101.6 F H 04/04/20 14:28 Pulse 146 H 04/04/20 11:53 Resp 16 04/04/20 14:28 BP 132/86 04/04/20 14:28 Pulse Ox 95 04/04/20 14:28 - Orders/Labs/Meds Orders: Active Orders 24 hr Category Date Time Status Chest 2V [CR] Stat Exams 04/04/20 11:53 Taken Knee 1V or 2V Lt [CR] Routine Exams 04/04/20 14:24 Taken CULTURE BLOOD [BC] Stat Lab 04/04/20 12:34 Received CULTURE BLOOD [BC] Stat Lab 04/04/20 12:34 Received Blood Culture x2 Reflex Set [OM.PC] Stat Oth 04/04/20 11:54 Ordered Medication Orders Acetaminophen (Tylenol) 650 mg PO Q4H PRN PRN Reason: Pain (Mild 1-3)/fever Last Admin: 04/04/20 14:54 Dose: 650 mg Documented by: MOISE Aspirin (Ecotrin) 325 mg PO DAILY EVER Atorvastatin Calcium (Lipitor) 20 mg PO BEDTIME EVER Carvedilol (Coreg) 6.25 mg PO BID EVER Enoxaparin Sodium (Lovenox) 40 mg SUBCUT Q24H EVER Sodium Chloride (Normal Saline) 1,000 mls @ 75 mls/hr IV ASDIRECTED EVER Stop: 04/05/20 03:49 Last Admin: 04/04/20 14:53 Dose: 75 mls/hr Documented by: MOISE Vancomycin HCl 1 gm/ Premix 200 mls @ 200 mls/hr IV Q24H EVER Non-Formulary Medication (Acetaminophen [Tylenol Arthritis]) 1,300 mg PO Q4HR PRN PRN Reason: Pain Polyethylene Glycol (Miralax) 17 gm PO DAILY PRN PRN Reason: Constipation Labs: Laboratory Tests 04/04/20 04/04/20 04/04/20 Range/Units 11:54 12:34 12:34 WBC 14.2 H (5.0-10.0) 10^3/uL RBC 4.83 (4.50-6.00) 10^6/uL Hgb 13.9 L (14.0-18.0) g/dL Hct 42.5 (40.0-54.0) % MCV 88.0 (82.0-94.0) fL MCH 28.8 (27.0-32.0) pg MCHC 32.7 L (33.0-38.0) g/dL RDW Coeff of Lupe 12.8 (11.0-15.0) % Plt Count 182 (150-400) 10^3/uL Neut % (Auto) 88.0 H (35-85) % Lymph % (Auto) 5.3 L (10-55) % Love % (Auto) 6.5 (0-16) % Eos % (Auto) 0.1 (0-5) % Baso % (Auto) 0.1 (0-3) % Neut # (Auto) 12.51 H (1.80-7.00) 10^3/uL Lymph # (Auto) 0.76 L (1.00-4.80) 10^3/uL Love # (Auto) 0.92 H (0.00-0.80) 10^3/uL Eos # (Auto) 0.01 (0.00-0.45) 10^3/uL Baso # (Auto) 0.02 10^3/uL PT 11.2 (9.7-12.3) SEC INR 1.11 (0.92-1.18) D-Dimer, Quantitative 2.38 H (0.00-0.50) Sodium (136-145) mEq/L Potassium (3.5-5.0) mEq/L Chloride (98-106) mEq/L Carbon Dioxide (21-32) mmol/L BUN (7-18) mg/dL Creatinine (0.7-1.3) mg/dL Est Cr Clr Drug Dosing mL/min Estimated GFR (MDRD) (>=60) mL/min Glucose (75-99) mg/dL Lactic Acid (0.4-2.0) mmol/L Calcium (8.4-10.1) mg/dL Total Bilirubin (0.0-1.0) mg/dL AST (15-37) U/L ALT (12-78) U/L Alkaline Phosphatase (46-116) U/L Lactate Dehydrogenase (100-190) U/L Creatine Kinase (35-232) U/L Troponin I (0.00-0.06) ng/mL C-Reactive Protein (0.2-0.8) mg/dL Total Protein (6.4-8.2) g/dL Albumin (3.4-5.0) g/dL Urine Color Yellow (YELLOW) Urine Appearance Clear (CLEAR) Urine pH 6.0 (4.5-8.0) Ur Specific [place] 1.025 H (1.003-1.020) Urine Protein 30 H (NEGATIVE) mg/dL Urine Glucose (UA) Negative (NEGATIVE) mg/dL Urine Ketones 15 H (NEGATIVE) mg/dL Urine Occult Blood Small H (NEGATIVE) Urine Nitrite Negative (NEGATIVE) Urine Bilirubin Negative (NEGATIVE) Urine Urobilinogen 1.0 (0.2-1.0) EU/dL Ur Leukocyte Esterase Trace H (NEGATIVE) Urine RBC 0-5 (0-5) /HPF Urine WBC 0-5 (0-5) /HPF Ur Squamous Epith Cells Occasional H (NOT SEEN) /HPF SARS CoV-2 RNA Rapid KAYLEE (NEGATIVE) 04/04/20 04/04/20 04/04/20 Range/Units 12:34 12:34 12:59 WBC (5.0-10.0) 10^3/uL RBC (4.50-6.00) 10^6/uL Hgb (14.0-18.0) g/dL Hct (40.0-54.0) % MCV (82.0-94.0) fL MCH (27.0-32.0) pg MCHC (33.0-38.0) g/dL RDW Coeff of Lupe (11.0-15.0) % Plt Count (150-400) 10^3/uL Neut % (Auto) (35-85) % Lymph % (Auto) (10-55) % Love % (Auto) (0-16) % Eos % (Auto) (0-5) % Baso % (Auto) (0-3) % Neut # (Auto) (1.80-7.00) 10^3/uL Lymph # (Auto) (1.00-4.80) 10^3/uL Love # (Auto) (0.00-0.80) 10^3/uL Eos # (Auto) (0.00-0.45) 10^3/uL Baso # (Auto) 10^3/uL PT (9.7-12.3) SEC INR (0.92-1.18) D-Dimer, Quantitative (0.00-0.50) Sodium 137 (136-145) mEq/L Potassium 4.0 (3.5-5.0) mEq/L Chloride 101 (98-106) mEq/L Carbon Dioxide 25 (21-32) mmol/L BUN 23 H (7-18) mg/dL Creatinine 1.7 H (0.7-1.3) mg/dL Est Cr Clr Drug Dosing 33.53 mL/min Estimated GFR (MDRD) 39 L (>=60) mL/min Glucose 148 H (75-99) mg/dL Lactic Acid 1.6 (0.4-2.0) mmol/L Calcium 9.2 (8.4-10.1) mg/dL Total Bilirubin 1.4 H (0.0-1.0) mg/dL AST 50 H (15-37) U/L ALT 75 (12-78) U/L Alkaline Phosphatase 135 H (46-116) U/L Lactate Dehydrogenase 225 H (100-190) U/L Creatine Kinase 84 (35-232) U/L Troponin I 0.126 H (0.00-0.06) ng/mL C-Reactive Protein 6.0 H (0.2-0.8) mg/dL Total Protein 8.0 (6.4-8.2) g/dL Albumin 3.4 (3.4-5.0) g/dL Urine Color (YELLOW) Urine Appearance (CLEAR) Urine pH (4.5-8.0) Ur Specific [place] (1.003-1.020) Urine Protein (NEGATIVE) mg/dL Urine Glucose (UA) (NEGATIVE) mg/dL Urine Ketones (NEGATIVE) mg/dL Urine Occult Blood (NEGATIVE) Urine Nitrite (NEGATIVE) Urine Bilirubin (NEGATIVE) Urine Urobilinogen (0.2-1.0) EU/dL Ur Leukocyte Esterase (NEGATIVE) Urine RBC (0-5) /HPF Urine WBC (0-5) /HPF Ur Squamous Epith Cells (NOT SEEN) /HPF SARS CoV-2 RNA Rapid KAYLEE Negative (NEGATIVE) Meds: Medications Generic Name Dose Route Start Last Admin Trade Name Freq PRN Reason Stop Dose Admin Acetaminophen 650 mg 04/04/20 14:28 04/04/20 14:54 Tylenol PO 650 mg Q4H PRN Administration Pain (Mild 1-3)/fever Aspirin 325 mg 04/05/20 08:00 Ecotrin PO DAILY EVER Atorvastatin Calcium 20 mg 04/04/20 20:00 Lipitor PO BEDTIME EVER Carvedilol 6.25 mg 04/04/20 20:00 Coreg PO BID EVER Enoxaparin Sodium 40 mg 04/04/20 20:00 Lovenox SUBCUT Q24H EVER Sodium Chloride 1,000 mls @ 75 mls/hr 04/04/20 14:30 04/04/20 14:53 Normal Saline IV 04/05/20 03:49 75 mls/hr ASDIRECTED EVER Administration Vancomycin HCl 1 gm/ Premix 200 mls @ 200 mls/hr 04/04/20 15:30 IV Q24H EVER Non-Formulary Medication 1,300 mg 04/04/20 14:28 Acetaminophen [Tylenol Arthritis] PO Q4HR PRN Pain Polyethylene Glycol 17 gm 04/04/20 14:28 Miralax PO DAILY PRN Constipation Discontinued Medications Generic Name Dose Route Start Last Admin Trade Name Freq PRN Reason Stop Dose Admin Acetaminophen 1,000 mg 04/04/20 12:26 04/04/20 12:41 Tylenol Extra Strength PO 04/04/20 12:27 Not Given ONETIME ONE Diltiazem HCl 20 mg 04/04/20 12:31 04/04/20 12:34 Diltiazem IVPUSH 04/04/20 12:32 20 mg ONETIME ONE Administration Lactated Ringer's 500 mls @ 500 mls/hr 04/04/20 13:08 04/04/20 14:05 Ringers, Lactated IV 04/04/20 14:07 Not Given .BOLUS ONE Vancomycin HCl 1 dose 04/04/20 14:30 Pharmacy To Dose - Vancomycin .XX ASDIRECTED [facility] Departure - Departure Time of Disposition: 14:58 Disposition: Admitted As Inpatient 66 Condition: Fair Clinical Impression: Fever of unknown origin, S/P aortic valve allograft, Atrial fibrillation with RVR Knee pain, left Qualifiers: Chronicity: acute Qualified Code(s): M25.562 - Pain in left knee - Discharge Information *PRESCRIPTION DRUG MONITORING PROGRAM REVIEWED*: Not Applicable *COPY OF PRESCRIPTION DRUG MONITORING REPORT IN PATIENT FABIANA: Not Applicable Sepsis Event Note (ED) - Evaluation Sepsis Screening Result: No Definite Risk - Focused Exam Vital Signs: Vital Signs Temp Temp Pulse Resp BP Pulse Ox 04/04/20 13:05 101.9 F H 18 120/64 95 04/04/20 12:47 18 118/63 95 04/04/20 12:39 102.1 F H 16 126/92 H 95 04/04/20 12:25 102.5 F H 16 141/92 H 95 04/04/20 12:14 138/88 04/04/20 11:53 99.9 F 146 H 16 140/100 H 94 L - Problem List & Annotations (1) Atrial fibrillation with RVR SNOMED Code(s): 002068169803953 Code(s): I48.91 - UNSPECIFIED ATRIAL FIBRILLATION Status: Acute Current Visit: Yes (2) Fever of unknown origin SNOMED Code(s): 9321177 Code(s): R50.9 - FEVER, UNSPECIFIED Status: Acute Current Visit: Yes (3) Knee pain, left SNOMED Code(s): 57757199 Code(s): M25.562 - PAIN IN LEFT KNEE Status: Acute Current Visit: Yes Qualifiers: Chronicity: acute Qualified Code(s): M25.562 - Pain in left knee (4) S/P aortic valve allograft SNOMED Code(s): 074962328, 731086954, 627475246 Code(s): Z95.4 - PRESENCE OF OTHER HEART-VALVE REPLACEMENT Status: Acute Current Visit: Yes - My Orders Last 24 Hours: My Active Orders 04/04/20 11:53 Chest 2V [CR] Stat 04/04/20 11:54 Blood Culture x2 Reflex Set [OM.PC] Stat 04/04/20 12:34 CULTURE BLOOD [BC] Stat CULTURE BLOOD [BC] Stat 04/04/20 14:24 Knee 1V or 2V Lt [CR] Routine - Assessment/Plan Admission H&P: Please use this note as an admission H&P Last 24 Hours: My Active Orders 04/04/20 11:53 Chest 2V [CR] Stat 04/04/20 11:54 Blood Culture x2 Reflex Set [OM.PC] Stat 04/04/20 12:34 CULTURE BLOOD [BC] Stat CULTURE BLOOD [BC] Stat 04/04/20 14:24 Knee 1V or 2V Lt [CR] Routine Assessment:: Fever of unknown origin Atrial Fibrillation with RVR S/P Aortic Valve Replacement Left Knee Pain Plan: 80 year old male originally presented to ED via EMS with c/o left knee pain. Was found to have temperature of 102 as well as in a fib with RVR. Patient was given 20 mg Cardizem IV Push and shortly after converted to NSR with rate in 80s. BP remained stable. No obvious source of infection identified. WBC count elevated with left shift. CRP elevated. Given concerns for valve infection, will admit to hospital for IV antibiotics until blood cultures are available. Will get echocardiogram. Patient appears dehydrated. Will cautiously administer IVF. Repeat labs in am. Will continue with current dose Coreg and monitor HR on telemetry. Patient has not tolerated anticoagulants in the past, so will refrain from this. Discussed case with Dr. Billy, who was agreeable with plan.
[2020-04-04] MEDS ORDERED: Acetaminophen 500 MG Tab PO ONE (12:26)
[2020-04-04] MEDS ORDERED: Diltiazem 25 MG/5 ML SDV IVPUSH ONE (12:31)
[2020-04-04] MEDS ORDERED: Lactated Ringers 500 ML IV ONE (13:08)
[2020-04-04] MEDS ORDERED: Non-Formulary Medication 1 Each (Acetaminophen [Tylenol Arthritis] 1,300 MG) PO PRN (14:28)
[2020-04-04] MEDS ORDERED: Polyethylene Glycol 3350 Powder 17 GM Packet PO PRN (14:28)
[2020-04-04] MEDS ORDERED: Acetaminophen 325 MG Tab PO PRN (14:28)
[2020-04-04] MEDS ORDERED: Sodium Chloride 0.9% 1,000 ML IV SCH (14:30)
[2020-04-04 15:49] VITALS: BP 110/85; PULSE 90
[2020-04-04] MEDS ORDERED: Piperacillin/Tazobactam 3.375 GM in Sodium Chloride 0.9% 100 ML IV ONE (18:21)
--- NOTE | 2020-04-04 18:27 | PCM.DCSUM1 ---
Discharge Summary - Hospital Course Free Text/Narrative:: Jaleel is an 80 year old male with PMH of CAD, aortic valve replacement and CABG who presented to ER with complaints of left knee pain. Had been worsening and friend was worried that he would fall. Had become more unsteady. In ER, was found to have a fever of 102 and a heart rate in the 160s. Rhythm noted to be atrial fib. Chest xray unremarkable. Urine clear. Knee is without redness, warmth or swelling. Unknown source of fever. Was admitted to inpatient, started on Vancomycin, labs repeated. Obtain echo when able. Diagnosis: Stroke: No Modified Gilda Scale: No Symptoms at All Modified Gilda Scale Score: 0 - Discharge Data Discharge Date: 04/04/20 Discharge Disposition: DC/Tfer to Acute Hospital 02 Condition: Undetermined - Referral to Home Health Primary Care Physician: Afia Sales NP - Patient Summary/Data Complications: none Consults: Consultations 04/04/20 14:28 PT Evaluation and Treatment [CONS] Routine Hospital Course: Jaleel was admitted for sepsis, atrial fib with RVR. Was given Cardizem 20 mg IV in ER and had converted to NSR in the 80s. Blood pressure stable. This evening, tachycardic again in atrial fib with rate 130s. Blood pressure systolic of 90. Due to inability to control rate because of blood pressure, contacted [facility] in [place] due to concerns. Spoke with Dr. Ravi. ADvised to add Zosyn and agreed to accept patient in transfer. Patient in agreement with plan - Patient Instructions Other/Special Instructions: Transfer to Dr. Ravi at [facility] by ALS - Discharge Plan *PRESCRIPTION DRUG MONITORING PROGRAM REVIEWED*: Not Applicable *COPY OF PRESCRIPTION DRUG MONITORING REPORT IN PATIENT FABIANA: Not Applicable Home Medications: Home Meds Multivit-Mins/Iron/Folic/Lycop [Centrum Men's Tablet] 1 tab PO DAILY 09/07/16 [History] atorvaSTATin [Lipitor] 20 mg PO BEDTIME 01/03/18 [History] carvediloL [Carvedilol] 6.25 mg PO BID 01/03/18 [History] Acetaminophen [Tylenol Arthritis] 1,300 mg PO Q4HR PRN 03/21/18 [History] Aspirin [Aspirin EC] 325 mg PO DAILY 03/21/18 [History] Forms: ED Department Discharge - Discharge Summary/Plan Comment DC Time >30 min.: Yes Discharge Summary/Plan Comment: Discharge to [facility] in [place] to Dr. Ravi Time spent with patient and contacting significant other 15 minutes Time spent in transfer arrangements 15 minutes Time for documentation 10 minutes - General Info Date of Service: 04/04/20 Admission Dx/Problem (Free Text: Sepsis Atrial Fib with RVR Functional Status: Reports: Pain Controlled, Tolerating Diet, Ambulating - Review of Systems General: Reports: Weakness, Fatigue HEENT: Reports: No Symptoms Pulmonary: Denies: Shortness of Breath, Cough Cardiovascular: Denies: Chest Pain, Edema Gastrointestinal: Denies: Abdominal Pain, Nausea, Vomiting Genitourinary: Reports: No Symptoms Musculoskeletal: Reports: No Symptoms Skin: Reports: No Symptoms Neurological: Reports: Dizziness - Patient Data Vitals - Most Recent: Last Vital Signs Temp 99.5 F 04/04/20 15:46 Pulse 90 04/04/20 15:46 Resp 18 04/04/20 15:46 BP 110/85 04/04/20 15:46 Pulse Ox 95 04/04/20 15:46 Weight - Most Recent: 183 lb 3.266 oz Lab Results - Last 24 hrs: Laboratory Results - last 24 hr 04/04/20 04/04/20 04/04/20 Range/Units 11:54 12:34 12:34 WBC 14.2 H (5.0-10.0) 10^3/uL RBC 4.83 (4.50-6.00) 10^6/uL Hgb 13.9 L (14.0-18.0) g/dL Hct 42.5 (40.0-54.0) % MCV 88.0 (82.0-94.0) fL MCH 28.8 (27.0-32.0) pg MCHC 32.7 L (33.0-38.0) g/dL RDW Coeff of Lupe 12.8 (11.0-15.0) % Plt Count 182 (150-400) 10^3/uL Neut % (Auto) 88.0 H (35-85) % Lymph % (Auto) 5.3 L (10-55) % Mower % (Auto) 6.5 (0-16) % Eos % (Auto) 0.1 (0-5) % Baso % (Auto) 0.1 (0-3) % Neut # (Auto) 12.51 H (1.80-7.00) 10^3/uL Lymph # (Auto) 0.76 L (1.00-4.80) 10^3/uL Mower # (Auto) 0.92 H (0.00-0.80) 10^3/uL Eos # (Auto) 0.01 (0.00-0.45) 10^3/uL Baso # (Auto) 0.02 10^3/uL PT 11.2 (9.7-12.3) SEC INR 1.11 (0.92-1.18) D-Dimer, Quantitative 2.38 H (0.00-0.50) Sodium (136-145) mEq/L Potassium (3.5-5.0) mEq/L Chloride (98-106) mEq/L Carbon Dioxide (21-32) mmol/L BUN (7-18) mg/dL Creatinine (0.7-1.3) mg/dL Est Cr Clr Drug Dosing mL/min Estimated GFR (MDRD) (>=60) mL/min Glucose (75-99) mg/dL Lactic Acid (0.4-2.0) mmol/L Calcium (8.4-10.1) mg/dL Total Bilirubin (0.0-1.0) mg/dL AST (15-37) U/L ALT (12-78) U/L Alkaline Phosphatase (46-116) U/L Lactate Dehydrogenase (100-190) U/L Creatine Kinase (35-232) U/L Troponin I (0.00-0.06) ng/mL C-Reactive Protein (0.2-0.8) mg/dL Total Protein (6.4-8.2) g/dL Albumin (3.4-5.0) g/dL Urine Color Yellow (YELLOW) Urine Appearance Clear (CLEAR) Urine pH 6.0 (4.5-8.0) Ur Specific [place] 1.025 H (1.003-1.020) Urine Protein 30 H (NEGATIVE) mg/dL Urine Glucose (UA) Negative (NEGATIVE) mg/dL Urine Ketones 15 H (NEGATIVE) mg/dL Urine Occult Blood Small H (NEGATIVE) Urine Nitrite Negative (NEGATIVE) Urine Bilirubin Negative (NEGATIVE) Urine Urobilinogen 1.0 (0.2-1.0) EU/dL Ur Leukocyte Esterase Trace H (NEGATIVE) Urine RBC 0-5 (0-5) /HPF Urine WBC 0-5 (0-5) /HPF Ur Squamous Epith Cells Occasional H (NOT SEEN) /HPF SARS CoV-2 RNA Rapid KAYLEE (NEGATIVE) 04/04/20 04/04/20 04/04/20 Range/Units 12:34 12:34 12:59 WBC (5.0-10.0) 10^3/uL RBC (4.50-6.00) 10^6/uL Hgb (14.0-18.0) g/dL Hct (40.0-54.0) % MCV (82.0-94.0) fL MCH (27.0-32.0) pg MCHC (33.0-38.0) g/dL RDW Coeff of Lupe (11.0-15.0) % Plt Count (150-400) 10^3/uL Neut % (Auto) (35-85) % Lymph % (Auto) (10-55) % Mower % (Auto) (0-16) % Eos % (Auto) (0-5) % Baso % (Auto) (0-3) % Neut # (Auto) (1.80-7.00) 10^3/uL Lymph # (Auto) (1.00-4.80) 10^3/uL Mower # (Auto) (0.00-0.80) 10^3/uL Eos # (Auto) (0.00-0.45) 10^3/uL Baso # (Auto) 10^3/uL PT (9.7-12.3) SEC INR (0.92-1.18) D-Dimer, Quantitative (0.00-0.50) Sodium 137 (136-145) mEq/L Potassium 4.0 (3.5-5.0) mEq/L Chloride 101 (98-106) mEq/L Carbon Dioxide 25 (21-32) mmol/L BUN 23 H (7-18) mg/dL Creatinine 1.7 H (0.7-1.3) mg/dL Est Cr Clr Drug Dosing 33.53 mL/min Estimated GFR (MDRD) 39 L (>=60) mL/min Glucose 148 H (75-99) mg/dL Lactic Acid 1.6 (0.4-2.0) mmol/L Calcium 9.2 (8.4-10.1) mg/dL Total Bilirubin 1.4 H (0.0-1.0) mg/dL AST 50 H (15-37) U/L ALT 75 (12-78) U/L Alkaline Phosphatase 135 H (46-116) U/L Lactate Dehydrogenase 225 H (100-190) U/L Creatine Kinase 84 (35-232) U/L Troponin I 0.126 H (0.00-0.06) ng/mL C-Reactive Protein 6.0 H (0.2-0.8) mg/dL Total Protein 8.0 (6.4-8.2) g/dL Albumin 3.4 (3.4-5.0) g/dL Urine Color (YELLOW) Urine Appearance (CLEAR) Urine pH (4.5-8.0) Ur Specific [place] (1.003-1.020) Urine Protein (NEGATIVE) mg/dL Urine Glucose (UA) (NEGATIVE) mg/dL Urine Ketones (NEGATIVE) mg/dL Urine Occult Blood (NEGATIVE) Urine Nitrite (NEGATIVE) Urine Bilirubin (NEGATIVE) Urine Urobilinogen (0.2-1.0) EU/dL Ur Leukocyte Esterase (NEGATIVE) Urine RBC (0-5) /HPF Urine WBC (0-5) /HPF Ur Squamous Epith Cells (NOT SEEN) /HPF SARS CoV-2 RNA Rapid KAYLEE Negative (NEGATIVE) Med Orders - Current: Current Medications Acetaminophen (Tylenol) 650 mg PO Q4H PRN PRN Reason: Pain (Mild 1-3)/fever Last Admin: 04/04/20 14:54 Dose: 650 mg Documented by: Aspirin (Ecotrin) 325 mg PO DAILY [facility] Atorvastatin Calcium (Lipitor) 20 mg PO BEDTIME [facility] Carvedilol (Coreg) 6.25 mg PO BID [facility] Enoxaparin Sodium (Lovenox) 40 mg SUBCUT Q24H [facility] Sodium Chloride (Normal Saline) 1,000 mls @ 75 mls/hr IV ASDIRECTED [facility] Stop: 04/05/20 03:49 Last Admin: 04/04/20 14:53 Dose: 75 mls/hr Documented by: Vancomycin HCl 1 gm/ Premix 200 mls @ 200 mls/hr IV Q24H [facility] Last Admin: 04/04/20 15:39 Dose: 200 mls/hr Documented by: Piperacillin Sod/Tazobactam (Sod 3.375 gm/ Sodium Chloride) 100 mls @ 200 mls/hr IV STAT ONE Stop: 04/04/20 18:50 Non-Formulary Medication (Acetaminophen [Tylenol Arthritis]) 1,300 mg PO Q4HR PRN PRN Reason: Pain Polyethylene Glycol (Miralax) 17 gm PO DAILY PRN PRN Reason: Constipation Discontinued Medications Acetaminophen (Tylenol Extra Strength) 1,000 mg PO ONETIME ONE Stop: 04/04/20 12:27 Last Admin: 04/04/20 12:41 Dose: Not Given Documented by: Diltiazem HCl (Diltiazem) 20 mg IVPUSH ONETIME ONE Stop: 04/04/20 12:32 Last Admin: 04/04/20 12:34 Dose: 20 mg Documented by: Lactated Ringer's (Ringers, Lactated) 500 mls @ 500 mls/hr IV .BOLUS ONE Stop: 04/04/20 14:07 Last Admin: 04/04/20 14:05 Dose: Not Given Documented by: Vancomycin HCl (Pharmacy To Dose - Vancomycin) 1 dose .XX ASDIRECTED EVER - Exam General: Reports: Alert, Oriented HEENT: Reports: Mucous Membr. Moist/Blaine Lungs: Reports: Clear to Auscultation, Normal Respiratory Effort Cardiovascular: Reports: Irregular Rhythm GI/Abdominal Exam: Normal Bowel Sounds, Soft, Non-Tender Extremities: Normal Inspection, No Pedal Edema Skin: Reports: Warm, Dry Neurological: Reports: No New Focal Deficit
[2020-04-04] MEDS ORDERED: Enoxaparin 40 MG/0.4 ML Syringe SUBCUT SCH (20:00)
[2020-04-04] MEDS ORDERED: Carvedilol 12.5 MG Tab PO SCH (20:00)
[2020-04-04] MEDS ORDERED: atorvaSTATin 20 MG Tab PO SCH (20:00)
[2020-04-05] MEDS ORDERED: Aspirin 325 MG Tab.EC PO SCH (08:00)
== END 2020-04-04 19:05 | DRG 872 ==
LOC: CC.ED 11:48 → CC.MS 14:18 → UNDOADMIN 14:18 → CC.MS 14:20
PROVIDERS: ADMIT Nurse Practitioner Family; ATTEND Family Medicine
DX: A41.9 Sepsis, unspecified organism (principal); I48.91 Unspecified atrial fibrillation; M25.562 Pain in left knee; Z20.828 Contact with and (suspected) exposure to other viral communicable diseases; I25.10 Atherosclerotic heart disease of native coronary artery without angina pectoris; Z95.2 Presence of prosthetic heart valve; Z95.1 Presence of aortocoronary bypass graft; Z79.82 Long term (current) use of aspirin; Z79.899 Other long term (current) drug therapy; Z98.49 Cataract extraction status, unspecified eye; Z98.890 Other specified postprocedural states
CPT/HCPCS: 36415; 71046; 73560-LT; 80053; 81001; 81003; 82550; 83605; 83615; 84484; 85025; 85379; 85610; 86140; 87040; 93005; 96374; 99285-25; A9270-GY; J2543; J3370; J3490; J7030; J7050; U0002

== ENCOUNTER 2022-02-02 11:58 | Emergency (ER) | payer MEDICARE, BC ==
[2022-02-02 12:37] LABS: CHLORIDE,CL 101 mEq/L (98-106); SODIUM,NA 137 mEq/L (136-145)
[2022-02-02 12:45] LABS: ESTIMATED GFR 50 mL/min (>=60)
[2022-02-02 13:58] VITALS: BP 124/64; PULSE 80
== END 2022-02-02 16:15 | disposition still patient (30) ==
LOC: CC.ED 11:58
DX: M21.372 Foot drop, left foot (principal); Z79.899 Other long term (current) drug therapy; Z72.3 Lack of physical exercise
CPT/HCPCS: 36415; 80053; 81003; 83735; 85027; 93005; 99285

== ENCOUNTER 2022-02-02 16:30 | Inpatient (IN) | payer MEDICARE, BC | END 2022-02-05 15:01 | disposition home health service (06) | DRG 948 | LOC: CC.ZCENSUS 16:30 | PROVIDERS: ADMIT Nurse Practitioner Family; ATTEND Nurse Practitioner Family | DX: R53.81 Other malaise (principal) | CPT/HCPCS: 97110-GP; 97530-GP ==

== ENCOUNTER 2022-06-25 14:34 | Observation (INO) | payer MEDICARE, BC ==
[2022-06-25] MEDS ORDERED: Acetaminophen 325 MG Tab PO ONE (14:52)
[2022-06-25] MEDS ORDERED: Sodium Chloride 0.9% 1,000 ML IV ONE (14:53)
[2022-06-25 15:47] LABS: CORONAVIRUS COVID-19 NAA POSITIVE (NEGATIVE); RESPIRATORY SYNCYTIAL VIR NAA NEGATIVE (NEGATIVE)
[2022-06-25] MEDS ORDERED: Polyethylene Glycol 3350 Powder 17 GM Packet PO PRN (18:14)
[2022-06-25] MEDS ORDERED: Docusate Sodium 100 MG Cap PO PRN (18:14)
[2022-06-25] MEDS ORDERED: Ondansetron 4 MG Tab.DIS PO PRN (18:14)
[2022-06-25] MEDS ORDERED: Acetaminophen 325 MG Tab PO PRN (19:00)
[2022-06-25] MEDS ORDERED: Nirmatrelvir/Ritonavir 150 MG/100 MG Dose Pack PO SCH (20:00)
[2022-06-25] MEDS: Nirmatrelvir/Ritonavir 150 MG/100 MG Dose Pack PO SCH (20:08)
[2022-06-25] MEDS: CARVEDILOL 12.5 MG PO SCH (20:08)
[2022-06-26] MEDS: Heparin Sodium 5,000 Units/ML Vial SUBCUT SCH ×3 (07:47→23:52)
[2022-06-26] MEDS: Aspirin 325 MG Tab.EC PO SCH (07:47)
[2022-06-26] MEDS: Nirmatrelvir/Ritonavir 150 MG/100 MG Dose Pack PO SCH ×2 (07:48→19:42)
[2022-06-26] MEDS: CARVEDILOL 12.5 MG PO SCH ×2 (08:17→19:42)
[2022-06-27] MEDS: Nirmatrelvir/Ritonavir 150 MG/100 MG Dose Pack PO SCH (07:30)
[2022-06-27] MEDS: Aspirin 325 MG Tab.EC PO SCH (07:30)
[2022-06-27] MEDS: Heparin Sodium 5,000 Units/ML Vial SUBCUT SCH (08:31)
[2022-06-27] MEDS: CARVEDILOL 12.5 MG PO SCH (08:31)
[2022-06-27 08:32] VITALS: BP 124/84; PULSE 72
== END 2022-06-27 12:30 | disposition home or self-care (01) ==
LOC: SUPCPDRO 14:34 → CC.ED 14:34 → UNDOADMOB 16:30 → CC.MS 16:30 → UNDODISOB 06-27 12:30
PROVIDERS: ADMIT Nurse Practitioner Family; ATTEND Nurse Practitioner Family
DX: U07.1 COVID-19 (principal); R53.1 Weakness; Z79.899 Other long term (current) drug therapy; Z79.82 Long term (current) use of aspirin; Z98.890 Other specified postprocedural states
CPT/HCPCS: 0241U; 36415; 71045; 80053; 81001; 85025; 96360; 96372; 99223; 99232; 99238; 99285-25; A9270-GY; G0378; J1644; J7030

== ENCOUNTER 2022-06-27 13:02 | Inpatient (IN) | payer MEDICARE, BC ==
[2022-06-27] MEDS ORDERED: Ondansetron 4 MG Tab.DIS PO PRN (13:20)
[2022-06-27] MEDS ORDERED: Acetaminophen 325 MG Tab PO PRN (13:20)
[2022-06-27] MEDS ORDERED: Heparin Sodium 5,000 Units/ML Vial SUBCUT SCH (14:00)
[2022-06-27] MEDS: Heparin Sodium 5,000 Units/ML Vial SUBCUT SCH ×2 (15:59→23:54)
[2022-06-27] MEDS: Carvedilol 6.25 MG Tab**OWN MED PO SCH (19:37)
[2022-06-27] MEDS: Nirmatrelvir/Ritonavir 150 MG/100 MG Dose Pack PO SCH (19:38)
[2022-06-27] MEDS ORDERED: Carvedilol 6.25 MG Tab PO SCH (20:00)
[2022-06-28] MEDS: Aspirin 325 MG Tab.EC PO SCH (07:31)
[2022-06-28] MEDS: Carvedilol 6.25 MG Tab**OWN MED PO SCH ×2 (07:31→19:55)
[2022-06-28] MEDS: Nirmatrelvir/Ritonavir 150 MG/100 MG Dose Pack PO SCH ×2 (07:32→19:56)
[2022-06-28] MEDS: Heparin Sodium 5,000 Units/ML Vial SUBCUT SCH ×2 (07:32→16:18)
[2022-06-29] MEDS: Heparin Sodium 5,000 Units/ML Vial SUBCUT SCH ×3 (01:50→17:02)
[2022-06-29] MEDS: Carvedilol 6.25 MG Tab**OWN MED PO SCH ×2 (08:13→19:41)
[2022-06-29] MEDS: Aspirin 325 MG Tab.EC PO SCH (08:14)
[2022-06-29] MEDS: Nirmatrelvir/Ritonavir 150 MG/100 MG Dose Pack PO SCH ×2 (08:14→19:41)
[2022-06-30] MEDS: Heparin Sodium 5,000 Units/ML Vial SUBCUT SCH ×4 (02:25→23:56)
[2022-06-30] MEDS: Aspirin 325 MG Tab.EC PO SCH (07:47)
[2022-06-30] MEDS: Nirmatrelvir/Ritonavir 150 MG/100 MG Dose Pack PO SCH (07:49)
[2022-06-30] MEDS: Carvedilol 6.25 MG Tab**OWN MED PO SCH ×2 (07:53→19:25)
[2022-06-30] MEDS ORDERED: Magnesium Hydroxide 400 MG/5 ML Susp 30 ML Cup PO ONE (20:00)
[2022-07-01] MEDS: Heparin Sodium 5,000 Units/ML Vial SUBCUT SCH ×2 (07:42→16:50)
[2022-07-01] MEDS: Aspirin 325 MG Tab.EC PO SCH (07:46)
[2022-07-01] MEDS: Polyethylene Glycol 3350 Powder 17 GM Packet PO SCH (07:47)
[2022-07-01] MEDS: Carvedilol 6.25 MG Tab**OWN MED PO SCH ×2 (08:21→20:34)
[2022-07-01] MEDS ORDERED: Bisacodyl 10 MG Supp RECTAL PRN (11:44)
[2022-07-02] MEDS: Heparin Sodium 5,000 Units/ML Vial SUBCUT SCH ×2 (00:10→09:19)
[2022-07-02] MEDS: Aspirin 325 MG Tab.EC PO SCH (08:15)
[2022-07-02] MEDS: Polyethylene Glycol 3350 Powder 17 GM Packet PO SCH (08:15)
[2022-07-02] MEDS: Carvedilol 6.25 MG Tab**OWN MED PO SCH ×2 (09:20→21:04)
[2022-07-03] MEDS: Polyethylene Glycol 3350 Powder 17 GM Packet PO SCH (07:40)
[2022-07-03] MEDS: Aspirin 325 MG Tab.EC PO SCH (07:40)
[2022-07-03] MEDS: Carvedilol 6.25 MG Tab**OWN MED PO SCH ×2 (07:41→19:27)
[2022-07-04] MEDS: Aspirin 325 MG Tab.EC PO SCH (07:28)
[2022-07-04] MEDS: Carvedilol 6.25 MG Tab**OWN MED PO SCH ×2 (07:28→19:48)
[2022-07-04] MEDS: Polyethylene Glycol 3350 Powder 17 GM Packet PO SCH (07:28)
[2022-07-05 07:07] VITALS: BP 96/55; PULSE 74
[2022-07-05] MEDS: Carvedilol 6.25 MG Tab**OWN MED PO SCH (07:11)
[2022-07-05] MEDS: Polyethylene Glycol 3350 Powder 17 GM Packet PO SCH (07:13)
[2022-07-05] MEDS: Aspirin 325 MG Tab.EC PO SCH (07:13)
== END 2022-07-05 10:30 | DRG 947 ==
LOC: CC.MS 13:02 → UNDOADMIN 13:02 → CC.MS 13:20
PROVIDERS: ADMIT Nurse Practitioner Family; ATTEND Nurse Practitioner Family
DX: R53.1 Weakness (principal); U07.1 COVID-19; Z79.82 Long term (current) use of aspirin; Z79.899 Other long term (current) drug therapy
CPT/HCPCS: 36415; 80053; 81003; 83735; 85025; 85049; 97110-GP; 97161-GP; A9270-GY; J1644